=== PATIENT | female | born 1935 | race Caucasian/White ===

== ENCOUNTER 2019-08-31 15:57 | Inpatient (IN) | payer MEDICARE ==
[~2019-08-31 15:57] MED LIST: Iopamidol-370 76% 500 ML 1 ML ONE
[2019-08-31] MEDS ORDERED: Fentanyl 100 MCG/2 ML VIAL ONE (16:15)
[2019-08-31 16:25] LABS: #Eosinphils 0.4 thou/uL (0.0-0.7); #Lymphocytes 3.4 thou/uL (1.20-3.40); #Neutrophils 8.4 thou/uL (1.40-6.50); %Basophils 0.1 % (0.0-1.0); %Eosinophils 3.3 % (0.0-10.0); %Lymphocytes 25.6 % (21.0-51.0); %Monocytes 7.3 % (0.0-10.0); %Neutrophils 63.6 % (42.0-75.0); Hemoglobin 12.5 g/dL (12.0-16.0); Mean Corpuscular HGB CONC 33.1 g/dL (32.0-36.0); Mean Corpuscular Hemoglobin 31.5 pg (27.0-31.0); Mean Corpuscular Volume 95.2 fL (78.0-98.0); Mean Platelet Volume 8.4 fL (7.4-10.4); Platelet Count 168 thou/uL (130-400); RBC Distribution Width 13.1 % (11.5-14.5); Red Blood Cell (RBC) Count 3.98 mill/uL (4.20-5.40); White Blood Cell (WBC) Count 13.2 thou/uL (4.8-10.8)
[2019-08-31 16:42] LABS: ALT (SGPT) 11 U/L (8-55); AST (SGOT) 20 U/L (5-34); Albumin 3.9 g/dL (3.4-4.8); Alkaline Phosphatase 119 U/L (40-110); Anion Gap 16 mmol/L (10-20); BUN (Urea Nitrogen) 44 mg/dL (9.8-20.1); Bilirubin, Total 0.3 mg/dL (0.2-1.2); Calc. Creatinine Clearance 0 mL/min (70-130); Calcium 8.7 mg/dL (7.8-10.44); Carbon Dioxide 20 mmol/L (23-31); Chloride 109 mmol/L (98-107); Estimated GFR-MDRD 21; Globulin 2.5 g/dL (2.4-3.5); Glucose 115 mg/dL (83-110); Lipase 37 U/L (8-78); Potassium 4.6 mmol/L (3.5-5.1); Protein, Total 6.4 g/dL (6.0-8.3); Sodium 140 mmol/L (136-145)
--- NOTE | 2019-08-31 16:56 | RAD ---
XR Chest 1 View HISTORY: Fall COMPARISON: None FINDINGS: The heart size is normal. The aorta is tortuous. There is scoliosis of the spine. There is right sided paramediastinal density. It cannot be said with certainty if this is due to a mass or artifactual. A CT scan would be helpful. No focal areas of consolidation, pneumothorax or pleural eff usions.
--- NOTE | 2019-08-31 17:21 | CT ---
CT BRAIN NONCONTRAST: DATE: 08/31/2019 HISTORY: 84-year-old female status post acute head trauma from fall. Dr. Subramanian reported the subdural hematoma but telephone to Dr. Zelaya at 5:15 PM on 08/31/2019 COMPARISON: none FINDINGS: There is a left temporal parietal frontal acute subdural hematoma which measures approximately 0.8 cm in transverse thickness. There is left to right midline shift of the septum pellucidum a distance of 0.4 cm. Without prior studies, it is uncertain how much of this is pre-existing and how much is du e to mass effect. Ventricles appear normal in size and configuration. No intra-axial hemorrhage. No calvarial fracture identified. Broad left temporal parietal superficial soft tissue scalp hematoma. IMPRESSION: Acute, traumatic left supratentorial subdural hematoma.
--- NOTE | 2019-08-31 17:23 | CT ---
CT CERVICAL SPINE NONCONTRAST: DATE: 08/31/2019 HISTORY: cervical trauma FINDINGS: There are no jumped or perched facets. There is no evidence of acute fracture. The vertebral body hei ghts are maintained. There is no prevertebral soft tissue swelling. There are degenerative disc changes and facet osteoarthrosis. IMPRESSION: 1) Cervical spondylosis. 2) no evidence of acute fracture or acute traumatic subluxation.
--- NOTE | 2019-08-31 17:26 | CT ---
CT maxillofacial noncontrast: HISTORY: 84-year-old female status post acute facial trauma due to fall downstairs. FINDINGS: No acute fracture identified. Orbits are clear. Air-fluid levels in sphenoid sinus. IMPRESSION: No facial bone fracture identified.
--- NOTE | 2019-08-31 17:47 | RAD ---
LEFT HUMERUS RADIOGRAPH ONE VIEW: 08/31/19 PROVIDED CLINICAL HISTORY: Trauma. FINDINGS: There is a displaced humeral neck fracture with conspicuous angulation and fracture fragment overridi ng. The glenohumeral relationship is not assessed on the basis of this study. IMPRESSION: As above. POS: SAUL
--- NOTE | 2019-08-31 17:49 | CT ---
CT THORAX WITH CONTRAST CT ABDOMEN WITH CONTRAST CT PELVIS WITH CONTRAST CT THORACIC SPINE WITH CONTRAST CT LUMBAR SPINE WITH CONTRAST: (Trauma protocol) DATE: 08/31/2019 HISTORY: Trauma to the chest, abdomen, and pelvis TECHNIQUE: IV administration of iodinated contrast media. No oral contrast media. Single phase scans of thorax, abdomen, and pelvis. Sagittal reconstructions of thoracic and lumbar spine. FINDINGS: Thoracic and lumbar spine: There are only 4 lumbar-type vertebrae. T9 compression-burst fracture, approximately 25% loss of height. T11 compression dashed burst fracture approximately 25% loss of height. L2 burst fracture approximately 75% loss of height L3 burst fracture approximately 30% loss of height All other of indeterminate ages. At least some of them, and possibly all of them, could be old. Thorax: Rib fractures, all acute: Left posterior second, mildly displaced. Left posterior third, mildly displaced. Left posterior fourth, nondisplaced. Less posterior fifth, nondisplaced Left posterior sixth, nondisplaced. Left posterior seventh, mildly displaced. Left posterior seventh, nondisplaced Left posterior eighth, nondisplaced Left posterior ninth, mildly displaced Left posterior 10th, mildly displaced. Left lateral ninth, minimally angulated. Left lateral 10th, mildly displaced. Left lateral third, nondisplaced Left lateral fourth, minimally angulated. Left lateral fifth: Minimally displaced and angulated. Left lateral sixth, nondisplaced Left lateral seventh: Nondisplaced. Left lateral eighth: Minimally displaced. Left lateral ninth: Nondisplaced. There are only 11 fully formed paired ribs. Significantly angulated, comminuted, fracture, of left humeral head and neck. Inferior dislocation of glenohumeral joint left. Large hiatal hernia. 1.5 x 0.9 x 1.3 cm noncalcified nodular lesion posterior segment left lower lobe abutting posterior p leural surface. Possible neoplasm. No pulmonary contusion, edema, pleural effusion, or pneumothorax. No thoracic aortic dissection or rupture. No mediastinal hematoma. Abdomen: Severely atrophic right kidney with multiple cysts. Atrophic left kidney with several cysts. Extensiv e bilateral renal scarring. No obvious renal laceration. Normal liver. Grade 3 splenic laceration with surrounding small to moderate sized perisplenic hematoma. Heavy atherosclerosis of abdominal aorta without dissection or aneurysm. No retroperitoneal hematoma. Pelvis: No acute displaced pelvic fracture or dislocation identified, although osteopenia lowers the sensitiv ity. Dr. Subramanian reported all of the findings of the CTs of chest, abdomen, pelvis, C-spine, and facial bones, by telephone to Dr. Zelaya of the emergency Department at 5:44 PM on 08/31/2019 IMPRESSION: 1. Grade 3 splenic laceration with surrounding perisplenic hematoma. 2. Acute fractures of almost all of the left ribs at 2 places each. 3. 1.5 cm lesion in superior segment left lower lobe suspicious for lung cancer. Recommend PET scan. 4. Large hiatal hernia. 5. Multiple compression fractures of lumbar spine and thoracic spine, of indeterminate ages. 6. Severe lumbar spondylosis. 7. Severe atherosclerosis of entire aorta. 8. Extensive scarring and atrophy of bilateral kidneys
--- NOTE | 2019-08-31 17:49 | RAD ---
LEFT ANKLE RADIOGRAPHS TWO VIEWS: 08/31/19 PROVIDED CLINICAL HISTORY: Fall. FINDINGS: There are transversely oriented comminuted and displaced fractures of the distal tibial and fibular d iaphyses. There is intra-articular extension to involve the tibial plafond suspected. IMPRESSION: Comminuted, displaced fractures of the distal tibia and fibula. POS: SAUL
--- NOTE | 2019-08-31 17:56 | RAD ---
LEFT SHOULDER RADIOGRAPHS TWO VIEWS: 08/31/19 PROVIDED CLINICAL HISTORY: Trauma. FINDINGS: Comminuted, displaced fracture of the left humeral neck and humeral head with significant fracture an gulation and overriding. The glenohumeral relationship is not assessed on the basis of this study. IMPRESSION: As above. POS: SAUL
[2019-08-31 18:01] LABS: INR-International Normal Ratio 0.9; Prothrombin Time 12.3 SEC (12.0-14.7)
[2019-08-31 18:02] LABS: PTT 21.9 SEC (22.9-36.1)
[2019-08-31] MEDS ORDERED: Ondansetron PF 4 MG/2 ML Vial ONE (18:07)
[2019-08-31 18:24] LABS: Bacteria/HPF 3+ HPF (None Seen); Bilirubin Negative (Negative); Blood, Urine 3+ (Negative); Clarity Turbid (Clear); Glucose, Urine (Dipstick) Normal (Negative); Leukocyte 500 Leu/uL (Negative); Nitrite Negative (Negative); Protein, Urine (Dipstick) 10 mg/dL (Neg-Trace); RBC/HPF Greater than 50 HPF (0-3); Squamous Epithelial 0-3 HPF (0-3); Urobilinogen Normal mg/dL (Less than 2); WBC/HPF Greater than 50 HPF (0-3)
--- NOTE | 2019-08-31 19:02 | CON ---
DATE OF CONSULTATION: HISTORY OF PRESENT ILLNESS: Ms. Dunbar is a pleasant 84-year-old woman, who was brought to [facility] [facility] [facility] this evening after falling down a flight of stairs at a friend's house. She states she fell roughly about four stairs. Neurosurgery was called for a CT scan of the brain revealing a left-sided full cerebral convexity, subdural hematoma that at greatest thickness measures roughly 6 to 7 mm. All this does appear acute. There is measurable midline shift, which at most appears 2 to 3 mm. She does have asthma as would be expected for a woman of her age, a great deal of cortical atrophy and therefore, has plenty of space, none of her sulci or gyri are obliterated. Villareal-white differentiation is still intact. When I arrived to the Emergency Department, the patient is awake and alert, sitting in bed. She has an obvious frontal scalp laceration of the left eyebrow. This has not yet been stitched, but will likely need some type of external closure. She is nauseous and getting Zofran at the moment. Otherwise, she does not have any obvious external injuries other than a splinted left ankle. She is awake, alert, and oriented x5 to name, place, date of , current month, and current year and gives me some brief history about her moving from [place] to [place] in the early , as well as her 's in 1994. So, it would appear that her mental status is fantastic. She lives at home by herself without much assistance. She does take an 81 mg aspirin daily, but has no other blood thinning medications that she takes, though we do not have a current medication list available to us. PHYSICAL EXAMINATION: Again, the patient is alert and oriented x5. Gait is unassessed as she is in the bed and has a splinted left ankle fracture and is likely nonweightbearing until Orthopedics sees her. Her pupils are equal, round, and reactive to light. Extraocular movements are intact. She does have again a roughly 2.5 cm laceration over the left eyebrow laterally. Cranial nerves 2 through 12 are grossly intact. Sensation is grossly intact to bilateral upper extremities, bilateral lower extremities, chest, and trunk. She is exquisitely tender to palpation and unable to move the left upper extremity. On x-ray, she does have a fully displaced somewhat comminuted left proximal humerus fracture. Otherwise, motor function in the right upper and right lower extremity are excellent. ASSESSMENT: Acute subdural hemorrhage status post fall. PLAN: At this time, Neurosurgery's recommendation would be acute blood pressure control as when she came here she was in the 180 systolic. We would like to see her at least under 160. We will also need to repeat a CT scan later this evening around 9:30 p.m., some order will be placed. Neuro checks q.1 hour. She will definitely need ICU care. I discussed with the patient and friends at bedside that likely this is nonsurgical given her excellent neurologic status and overall thin nature of the subdural hemorrhage. However, did discuss the possibility of need for intervention should this change this evening. She expressed understanding. We will hold all blood thinning medications. Plan was just discussed with Dr. Morales. We will follow up in the morning. Job ID: [id number]
[2019-08-31] MEDS ORDERED: Adacel (T-DAP) 0.5 ML SYRINGE ONE (19:23)
[2019-08-31] MEDS ORDERED: Lidocaine 1% w/Epinephrine 1:100K 20 ML VIAL ONE (19:34)
--- NOTE | 2019-08-31 19:34 | RAD ---
Radiograph left ankle 2 views: DATE: 08/31/2019 Time: 6:48 AM HISTORY: 84-year-old female status post acute traumatic fracture of ankle, initial encounter, first reduction attempt. COMPARISON: 08/31/2019 4:36 PM. FINDINGS: The ankle has been placed into a splint. No interval change in alignment. Ankle mortise is congruent. No dislocation. Severe pes planus. IMPRESSION: 1. No interval change in alignment. 2. New splint. 3. Acute, traumatic, comminuted, mildly displaced fracture of distal tibial metaphysis with lateral a nd posterior angulation of distal fragment (medial and anterior angulation of fracture apex). 4.Acute, traumatic, comminuted, mildly displaced fracture of distal fibular metaphysis with lateral a nd posterior angulation of distal fragment (medial and anterior angulation of fracture apex).
[2019-08-31] MEDS ORDERED: Ondansetron ODT 4 MG TAB PO PRN (19:49)
[2019-08-31] MEDS ORDERED: Dextrose 50% Abboject 50 ML SYRINGE SLOW IVP PRN (19:49)
[2019-08-31] MEDS ORDERED: Dextrose 5% in Water 1,000 ML IV PRN (19:49)
[2019-08-31] MEDS ORDERED: Ondansetron PF 4 MG/2 ML Vial IVP PRN (19:49)
--- NOTE | 2019-08-31 20:07 | RAD ---
Radiograph left foot 3 views: HISTORY: 84-year-old female with acute, traumatic left foot pain FINDINGS: Comminuted, displaced, and angulated fractures of distal metaphyses of tibia and fibula. Pes planus. Severe DJD at naviculocuneiform joint. No displaced fracture of foot identified, but the positioning is suboptimal, and the osteopenia could obscure a mildly displaced or nondisplaced foot f racture. IMPRESSION: 1. No acute fracture of foot identified. 2. Pes planus. 3. Acute fractures of distal tibia and fibula.
[2019-08-31] MEDS ORDERED: traMADol HCl 50 MG TAB PO PRN (20:08)
[2019-08-31] MEDS ORDERED: Fentanyl 100 MCG/2 ML VIAL SLOW IVP PRN (20:10)
[2019-08-31 20:17] LABS: Phosphorus 3.8 mg/dL (2.3-4.7)
[2019-08-31 20:39] LABS: Lactic Acid 2.4 mmol/L (0.5-2.2)
--- NOTE | 2019-08-31 20:56 | RAD ---
Radiograph left leg one view: DATE: 08/31/2019 Time: 4:32 PM Submitted for dictation at 8:51 PM. HISTORY: 84-year-old female status post acute trauma due to fall downstairs. COMPARISON: None FINDINGS: Comminuted, mildly displaced fractures of distal tibial metaphysis and distal fibular metaphysis, wit h lateral angulations of the major distal fragments, plus rotation. No acute fracture of the mid diaphyses and proximal metaphyses of the tibia and fibula are identified, but the sensitivity for the detection of fractures is decreased because this is only a single view. IMPRESSION: Acute, traumatic, comminuted, displaced, angulated fractures of the distal tibial and fibular metaphy ses.
[2019-08-31] MEDS ORDERED: cloNIDine 0.2 MG TAB PO SCH (21:00)
--- NOTE | 2019-08-31 21:14 | PDOC.EVN ---
Event Note - Event Note Event Note: Patient seen and examined. Patient stable and seen in ICU. See Linda Carmichael note for details.
[2019-08-31] MEDS: Sodium Chloride 0.9% 1,000 ML IV SCH (21:36)
[2019-08-31] MEDS: Senokot S 8.6-50 MG TAB PO SCH (22:22)
[2019-08-31] MEDS: traMADol HCl 50 MG TAB PO SCH (22:22)
[2019-08-31] MEDS: Famotidine/PF 20 mg/2ml Vial SLOW IVP SCH (22:22)
[2019-08-31] MEDS: Acetaminophen 500 MG TAB PO SCH (22:23)
[2019-08-31] MEDS: Gabapentin 100 MG CAP PO SCH (22:24)
--- NOTE | 2019-08-31 22:50 | CT ---
CT BRAIN NONCONTRAST: DATE: 08/31/2019 10:35 PM HISTORY: 84-year-old female with acute subdural hematoma. Follow-up. COMPARISON: 08/31/2019 4:53 pm. FINDINGS: The left frontotemporal parietal acute subdural hematoma is now more hyperdense, and slightly larger in volume. Transverse thickness is approximately 9 mm. Left to right midline shift of the septum pellucidum approximately 4 to 6 mm, not significant changed . Ventricles are normal in size and configuration. No new acute intra-axial hemorrhage. No calvarial fracture. Bilateral tympanomastoid cavities are angel ar. Air-fluid level in sphenoid sinus again demonstrated, raising the possibility of occult sphenoid bone fracture. Interval increase in size of left temporoparietal superficial soft tissue hem atoma. IMPRESSION: 1) slight interval increase in size of broad supratentorial left acute, traumatic subdural hematoma, with mild mass effect and midline shift. 2) interval increase in size of acute, broad left lateral scalp hematoma.
--- NOTE | 2019-09-01 00:47 | HP ---
REQUESTING ER PHYSICIAN: Dr. Zelaya. ATTENDING: Dr. Rivera CONSULTS: Orthopedic Surgery, Dr. Thomas. Neurosurgery, Dr. Morales. HISTORY OF PRESENT ILLNESS: This was a level 2 trauma activation. 84-year-old female, who was at her friend's house walking down some steps when she lost her balance and fell approximately 4 steps. The patient does not recall the event. The patient did have a positive loss of consciousness. The patient was evaluated in the emergency room and was found to have multiple traumatic injuries including multiple left-sided rib fractures, head injury, left forehead laceration, distal tibia fibula fracture. The patient currently only complains of her left shoulder and arm pain. The patient's left lower extremity was reduced in the emergency room and a splint was placed. The patient was given a tetanus injection and fentanyl in the emergency room. The patient also received 1 L of normal saline. The patient denied having any dizziness, chest pain, shortness of breath prior to losing her balance while she was going down the stairs. The patient denies any recent fever, chills, cough, or cold. The patient reports only seasonal allergies at this time. PAST MEDICAL HISTORY: Rheumatoid arthritis, chronic kidney disease from chronic Advil use, the patient sees Dr. Kurtz with Nephrology since 2005, macular degeneration, urge incontinence, coronary artery disease, endocrine disease, elevated parathyroid hormone, and hypertension. PAST SURGICAL HISTORY: Bilateral cataracts, bilateral femoral hernia repair, hysterectomy. ALLERGIES: CODEINE AND PENICILLIN. SOCIAL HISTORY: The patient lives at home alone and uses a cane to ambulate, the patient denies any history of smoking, denies alcohol use, denies any illicit drug use. CURRENT MEDICATIONS: 1. Metoprolol 50 mg twice a day. 2. Aspirin 81 mg p.o. daily. 3. Clonidine 0.1 mg oral two times a day. REVIEW OF SYSTEMS: A 10-point review of systems is negative unless otherwise indicated in the above HPI. OBJECTIVE: VITAL SIGNS: Temperature 98.2, pulse 88, blood pressure 159/87, respirations 20, SpO2 of 97% on room air. GENERAL: Well-appearing elderly female, lying in the ER bed, moderate distress due to left upper arm pain. HEENT: Head is normocephalic. Ecchymosis to the left cheek area, 1.5 cm laceration to the left forehead, no active bleeding. Tympanic membranes are clear. Pupils are equal bilateral, extraocular movements intact. Oropharynx is atraumatic. Mucous membranes are moist. NECK: Cervical spine is nontender. Trachea is midline. Normal range of motion. RESPIRATORY: Equal chest rise and fall. Bilateral breath sounds clear with no wheezing, rales, or rhonchi. Chest with no obvious bruising, left clavicle area with swelling. CARDIOVASCULAR: Regular rate, regular rhythm. No murmurs, no pedal edema. ABDOMEN: Soft, nontender, nondistended. No peritoneal signs. Active bowel sounds. PELVIS: Stable, nontender. : The patient has a Fuentes catheter in place with mildly blood-tinged output. BACK: Nontender. EXTREMITIES: Deformity and pain, left upper extremity, 2+ radial pulse. Left lower leg deformity, splint in place, cap refill less than 2, foot is warm. Right upper and lower extremity atraumatic with good pulses distally. NEUROLOGIC: The patient is awake, alert, and oriented. GCS is 15. No focal motor deficits. No focal sensory deficit at all extremities. Cranial nerves intact. LABORATORY DATA: WBC 13.2, RBC 3.98, hemoglobin 12.5, hematocrit 39.9, platelets 168. PT 12.3, INR 0.9, APTT 21.9. Sodium 140; potassium 4.6; chloride 109; BUN 44; creatinine 2.21; estimated GFR 21, which is baseline for the patient. Glucose 115, lactate 2.4, calcium 8.7, phosphorus 3.8, magnesium 2.0, alkaline phos 119. Troponin I less than 0.010. BNP 65.9. Urinalysis positive for blood 3+, negative nitrite, large leukocyte esterase, large rbc's, large wbc's, 3+ bacteria. DIAGNOSTICS: 12-lead EKG; sinus rhythm without any ST-segment abnormalities or T-wave abnormalities. Left shoulder x-ray, impression, comminuted and displaced fracture of the left humeral neck and humeral head with significant fracture angulation and overriding. Left ankle x-ray, impression, comminuted and displaced fractures of the distal tibia and fibula. Chest x-ray, impression, no focal areas of consolidation, no pneumothorax or pleural effusions. Left foot x-ray, no acute fracture of the foot identified. Left tibia and fibula x-ray, impression, left distal tibia-fibula fracture. Cervical spine CT, impression, cervical spondylosis, no evidence of acute fracture or acute traumatic subluxation. Chest, abdomen, and pelvis CT, impression, left rib fractures 2 through 10, grade 3 splenic laceration with surrounding perisplenic hematoma. 1.5 cm lesion in the superior segment of the left lower lobe suspicious for lung cancer. Recommend PET scan. Large hiatal hernia. Multiple compression fractures of lumbar spine and thoracic spine of indeterminate age. Severe lumbar spondylosis. Severe atherosclerosis of the entire aorta. Extensive scarring and atrophy of bilateral kidneys. Facial bone CT, no acute bone fracture identified. Left humerus x-ray, impression, displaced humeral neck fracture. Brain CT; impression, acute traumatic left supratentorial subdural hematoma. There is a left to right midline shift of septal pellucidum, the distance of 0.4 cm. ASSESSMENT: 1. Status post fall from 4 steps with loss of consciousness. 2. Left supratentorial subdural hematoma. 3. Left distal tibial-fibular fracture. 4. Left comminuted and displaced humeral neck fracture. 5. Grade 3 spleen injury. 6. Left forehead laceration approximately 1.5 cm, repaired in the ER. 7. Old thoracic and lumbar compression fractures. 8. Multiple left-sided rib fractures 2 through 10. 9. Urinary tract infection on admission. 10. Extensive scarring and atrophy of bilateral kidneys, large hiatal hernia, atherosclerosis of the aorta. 11. Incidental finding of a 1.5 cm left lower lobe lesion suspicious for lung cancer. 12. History of rheumatoid arthritis, chronic kidney disease stage 4, hypertension, macular degeneration, coronary artery disease, elevated parathyroid hormone. PLAN: 1. Admit the patient to the critical care unit. 2. Every 1-hour neuro checks and head of bed 30 degrees at all times. 3. Orthopedic Surgery plans to take the patient to the OR for repair of her left lower leg fracture in the morning. 4. Conservative treatment for left humeral neck fracture with sling at this time. 5. We will monitor the patient's hemoglobin and hematocrit q.6 hours with serial abdominal exams. 6. We will place the patient on a rib fracture protocol and a bowel regimen. We will encourage aggressive pulmonary toilet with incentive spirometer. We will treat the patient's urinary tract infection with Macrobid for 5 days and obtain a urine culture. 7. We will avoid any nephrotoxic medications such as NSAIDs. 8. We will place the patient on maintenance IV fluids with normal saline at 100 mL/hour and the patient will be n.p.o. after midnight except for sips of water with medications. The patient will have a repeat head CT per Neurosurgery recommendations. We will place a PT and OT consult to evaluate and treat postop. The patient will be placed on mechanical DVT prophylaxis at this time. The patient will not be placed on chemical DVT prophylaxis as there is a contraindication due to her subdural hematoma and spleen injury. We will continue to monitor urinary output and keep systolic blood pressure less than 160 per Neurosurgery recommendations. The plan was discussed with Dr. Rivera, who agrees. The plan was discussed with the patient and family, who agrees. Job ID: [id number] MTDD
[2019-09-01] MEDS: Acetaminophen 500 MG TAB PO SCH ×4 (03:06→20:04)
[2019-09-01] MEDS: traMADol HCl 50 MG TAB PO SCH ×5 (03:06→23:58)
[2019-09-01 04:40] LABS: Hemoglobin 9.3 g/dL (12.0-16.0)
[2019-09-01 04:51] LABS: Anion Gap 15 mmol/L (10-20); BUN (Urea Nitrogen) 42 mg/dL (9.8-20.1); Calc. Creatinine Clearance 16 mL/min (70-130); Calcium 7.9 mg/dL (7.8-10.44); Carbon Dioxide 16 mmol/L (23-31); Chloride 110 mmol/L (98-107); Estimated GFR-MDRD 21; Glucose 152 mg/dL (83-110); Magnesium 1.9 mg/dL (1.6-2.6); Potassium 4.8 mmol/L (3.5-5.1); Sodium 136 mmol/L (136-145)
[2019-09-01] MEDS: Sodium Chloride 0.9% 1,000 ML IV SCH ×2 (06:31→17:48)
[2019-09-01 07:22] LABS: Phosphorus 5.5 mg/dL (2.3-4.7)
--- NOTE | 2019-09-01 07:36 | RAD ---
EXAM: XR Forearm Lt 2 View STANDARD PROVIDED CLINICAL HISTORY: Pain FINDINGS: There is no evidence for fracture or other acute osseous abnormality. Alignment appears anatomic. Deg enerative changes are seen at the wrist and elbow. IMPRESSION: No evidence for an acute osseous abnormality. If there is persistent clinical concern, conservative m anagement and follow-up imaging advised.
--- NOTE | 2019-09-01 07:37 | RAD ---
EXAM: XR Elbow Lt 2 View PROVIDED CLINICAL HISTORY: Pain FINDINGS: There is no evidence for fracture or other acute osseous abnormality. Alignment appears anatomic. Deg enerative changes are seen. IMPRESSION: No evidence for an acute osseous abnormality. If there is persistent clinical concern, conservative m anagement and follow-up imaging advised.
--- NOTE | 2019-09-01 07:48 | RAD ---
EXAM: Portable chest PROVIDED CLINICAL HISTORY: Rib fractures COMPARISON: 08/31/2019 FINDINGS: Significant interval change with respect to the prior examination is not apparent. IMPRESSION: As above.
[2019-09-01 08:12] LABS: Band 17 % (5-11); Hemoglobin 9.1 g/dL (12.0-16.0); Lymphocytes 17 % (21-51); MDiff Complete? YES; Mean Corpuscular HGB CONC 33.5 g/dL (32.0-36.0); Mean Corpuscular Hemoglobin 32.1 pg (27.0-31.0); Mean Corpuscular Volume 95.8 fL (78.0-98.0); Monocytes 4 % (0-10); Neutrophil 61 % (42-75); Platelet Count 165 thou/uL (130-400); Red Blood Cell (RBC) Count 2.84 mill/uL (4.20-5.40); White Blood Cell (WBC) Count 8.2 thou/uL (4.8-10.8)
[2019-09-01 08:14] LABS: Lactic Acid 1.1 mmol/L (0.5-2.2)
[2019-09-01 08:21] LABS: Actual Bicarbonate (HCO3a) 18.4 mEq/L (22-28); Base Excess (BEa) -6.8 mEq/L (-2.0 to +3.0); CO2 Tension 35.3 mmHg (35.0-45.0); Calcium, Ionized 1.11 mmol/L (1.12-1.30); Carboxyhemoglobin (COHb) 1.4 gm% (0.0-3.0); Hemoglobin (Hb) 8.9 g/dL (12.0-16.0); O2 Tension (PaO2) 60.9 mmHg (> 60.0); Potassium - ABG Lab 4.64 mmol/L (3.70-5.30); pH, Arterial 7.34 (7.35-7.45)
[2019-09-01 08:22] LABS: ALV-art Gradient 44.705 (0-20); Puncture Site RRA
[2019-09-01] MEDS ORDERED: Calcium Chloride 1 GM/10 ML Abboject SYRINGE IVP SCH (08:30)
[2019-09-01] MEDS ORDERED: Sodium Chloride 0.9% 500 ML IV SCH (08:45)
[2019-09-01] MEDS: Morphine 2 MG/ML SYRINGE SLOW IVP PRN ×2 (08:53→20:40)
[2019-09-01] MEDS: Ferrous Sulfate 325 MG TAB PO SCH ×2 (08:55→17:59)
[2019-09-01] MEDS ORDERED: CALCIUM CHLORIDE IVP SCH (09:00)
[2019-09-01] MEDS ORDERED: SODIUM CHLORIDE IVP SCH (09:00)
[2019-09-01] MEDS ORDERED: ADMIXTURE FEE IVP SCH (09:00)
[2019-09-01] MEDS: Polyethylene Glycol 3350 17 GM Packet PO SCH (09:12)
[2019-09-01] MEDS: Nitrofurantoin Monohyd/M-Cryst 100 MG CAP PO SCH ×2 (09:12→20:04)
[2019-09-01] MEDS: Gabapentin 100 MG CAP PO SCH ×3 (09:12→20:04)
[2019-09-01] MEDS: Ascorbic Acid 500 mg Chewable Tablet PO SCH (09:12)
[2019-09-01] MEDS: Senokot S 8.6-50 MG TAB PO SCH ×2 (09:12→20:04)
--- NOTE | 2019-09-01 09:57 | CT ---
Head CT without contrast 09/01/2019: COMPARISON: 08/31/2019 HISTORY: Evaluate left-sided subdural hematoma TECHNIQUE: Axial CT imaging at 5 mm intervals from vertex through skull base without contrast FINDINGS: As seen on the prior examination there is an acute hemispheric subdural hematoma on the lef t. Left subdural hematoma measures up to 6 mm transverse dimension in the left frontal region anteriorly, stable. The small component lateral to the superior aspect of the left temporal lobe on t he prior examination has improved slightly. The volume of subdural blood along the frontal and parietal regions on the left near the vertex is stable. No new hemorrhage is seen. The degree of midl ine shift from left to right on this examination measures approximately 4 mm at the level of the septum pellucidum, similar to the prior examination. Small volume subarachnoid blood is noted in the right temporal region posteriorly/laterally. There is partial opacification of the sphenoid sinuses bilaterally. No displaced calvarial fracture. IMPRESSION: Stable hemispheric left subdural hematoma with mild left to right midline shift as detail ed above. Small volume extra-axial blood in the right temporal region is noted, not significantly changed when compared to the 08/31/2019 exam performed 10:35 PM.
--- NOTE | 2019-09-01 10:34 | CON ---
DATE OF CONSULTATION: 09/01/2019 HISTORY OF PRESENT ILLNESS: Ms. Dunbar is an 84-year-old female, who presents for evaluation after a fall from three stairs. The patient has multiple injuries to include a subdural hematoma, rib fractures, splenic lac, a left distal tibia and left proximal humerus fracture. The patient is resting comfortably in the ICU, had no events overnight, neurocognitively intact, has been cleared by Neurosurgery. She is currently being evaluated by Traumatology for clearance for the OR. Family at bedside. PHYSICAL EXAMINATION: VITAL SIGNS: Heart rate 104, 95% on room air, 102/58 blood pressure. GENERAL: Alert and oriented female, in no distress. EXTREMITIES: Left lower extremity is neurovascularly intact. She has bruising. No open wounds. She has pain with external rotation of her left shoulder. Left lower extremity splint clean, dry, intact. Neurovascularly intact. Brisk cap refill. IMPRESSION: Distal tibial plafond A1 fracture pattern with a left proximal humerus fracture. ASSESSMENT AND PLAN: The patient's left proximal humerus will be closed reduced in the OR. Her left ankle is the complicated situation. I am concerned about tenuousness of the skin. She is not a good candidate for an ex-fix. I feel that plating would be the optimal outcome, but her skin will likely not tolerate the plate fixation either for anterolateral or posterior. I am concerned about potential soft tissue compromise as well as the patient's ability to heal the fracture. I discussed with the family performing a transcalcaneal talar tibial pin with a fibular flexible nail as a stabilizing mechanism being placed in a splint followed by cast, hold it in place with removal of the pin in a delayed fashion once soft callus is formed. I discussed that this would help to stabilize the bone in an appropriate position while allow to heal. The pins will need to be removed. We also will try to attempt a closed reduction. I am doing this because the patient's soft tissue compromise as well as her bone quality. I am trying to minimize soft tissue injury as well as risk the patient. They understand that she still could end up with a valgus deformity of her left ankle. They understand the risks of the surgery that include pain, scar, bleeding, infection, damage to vital structures, loss of life or limb, malunion, nonunion, blood clots. They understand that her proximal humerus will be treated closed at first. If she fails conservative management, I can convert her to reverse placement as needed. She will be nonweightbearing to her left side for 12 weeks. The patient and family understand she is going to need long-term care. We will plan to perform this. The patient will be taken to the operating suite once cleared by Trauma. Job ID: [id number] MTDD
[2019-09-01] MEDS ORDERED: PROPOFOL 200 MG/20 ML VIAL ONE (11:06)
[2019-09-01] MEDS ORDERED: Ondansetron PF 4 MG/2 ML Vial ONE (11:06)
[2019-09-01] MEDS ORDERED: Dexamethasone 20 MG/5 ML VIAL ONE (11:06)
[2019-09-01] MEDS ORDERED: ePHEDrine/0.9% NaCl/PF SYRINGE 50 mg/10 ml ONE (11:06)
[2019-09-01] MEDS ORDERED: PHENYLEPHRINE-NS 100 MCG/ML 10 ML SYRINGE ONE (11:06)
[2019-09-01] MEDS ORDERED: Lidocaine 1% PF 5 ML VIAL ONE (11:06)
[2019-09-01] MEDS ORDERED: Phenylephrine HCL 10 MG/ML VIAL ONE (12:43)
[2019-09-01] MEDS ORDERED: Clindamycin/D5W 900 mg/50 ml Premix Bag ONE (13:23)
[2019-09-01] MEDS ORDERED: Hydrocortisone Sod Succ/PF 100 mg/2 ml Vial IVP SCH ×2 (13:45→20:00)
[2019-09-01] MEDS ORDERED: Promethazine HCl 25 MG/ML VIAL SLOW IVP PRN (15:18)
[2019-09-01] MEDS ORDERED: Ondansetron HCl/PF 4 MG/2 ML Vial IVP PRN (15:18)
[2019-09-01] MEDS ORDERED: Promethazine HCl 25 MG/ML VIAL IM PRN (15:18)
--- NOTE | 2019-09-01 16:14 | PRG ---
DATE OF SERVICE: 09/01/2019 SUBJECTIVE: The patient was seen this morning, sitting up in bed with no signs of acute distress. She reported her pain was manageable as long as she did not move, but if she took a deep breath, coughs, or moved at all, she had significant left upper extremity and chest wall pain, rating at 7/10 to 8/10. The patient is pending OR today for her left humerus and left distal tib-fib fractures. At the time of my evaluation, the patient's blood pressure has slowly drifted with systolic in the 100 and urinary output had dropped off below 30 mL an hour. Repeat CBC was completed as well as cortisol, lactic acid, ABG, for ionized calcium. It was determined that the patient needed additional fluid and she received 500 mL bolus of normal saline once. We continued her maintenance IV fluid. Repeat head CT completed last night had demonstrated an increase in the size of the head bleed. A repeat head CT was also completed today, that demonstrated that the bleed was stable. Subsequently, the patient was taken to the OR with Dr. Thomas for fixation of the left humerus and left ankle. The patient was requiring a little nasal cannula oxygen to maintain oxygen saturation greater than 92%. The patient is a smoker. OBJECTIVE: VITAL SIGNS: Temperature 98.6, pulse 100, oxygen saturation 94% on 2 L nasal cannula, and blood pressure 113/59. GENERAL: Frail elderly female, sitting up in bed, with some minimal respiratory distress. CARDIAC: Regular rate and rhythm. GI: Abdomen is soft, nontender, and nondistended. EXTREMITIES: 2+ pulses in all extremities. Left upper extremity is severely tender and splinted. Left lower extremity with splint that is clean and dry and in place. NEUROLOGIC: GCS is 15. LABORATORY FINDINGS: White count 8.2, hemoglobin 9.1, hematocrit 27.2, and platelets 165. Sodium 136, potassium 4.8, chloride 110, bicarb 16, BUN 42, creatinine 2.26, and glucose 152. Lactic acid 1.1. Phosphorus 5.5. Magnesium 1.9. Cortisol 12.3. ABG; pH is 7.34, bicarb 18.4, pCO2 of 35, pO2 of 60.9, O2 saturation 90.6, and base excess -6.8. Ionized calcium 1.11. DIAGNOSTIC RESULTS: X-ray of the elbow completed this morning demonstrates no evidence of acute osseous abnormalities. If there is persistent clinical concern, conservative management with followup imaging advised. X-ray of the left forearm demonstrates no evidence for acute osseous abnormalities. CT scan of the brain completed this morning demonstrates stable hemispheric left subdural hematoma with mild left to right midline shift as detailed above, small volume extra-axial blood in the right temporal region is noted, not significantly changed when compared to 08/31/2019 exam performed at 10:35 p.m. Chest x-ray demonstrates significant interval change with respect to the prior exam, it is not apparent. ASSESSMENT: 1. Status post mechanical fall down 4 steps. 2. Left subdural hematoma with midline shift. 3. Grade 3 splenic laceration with associated hematoma. 4. Left-sided ribs 2 through 10 fracture. 5. Left distal tib-fib fracture. 6. Left humerus fracture. 7. Urinary tract infection. 8. Left forehead laceration. 9. Acute adrenal insufficiency. 10. Acute hypocalcemia. PLAN: Continue n.p.o. with normal saline at 100 an hour. We will maximize her pain control. Continue scheduled Tylenol 1 g q.6 h., Flexeril p.r.n. We will change from fentanyl to morphine for breakthrough pain. We will add scheduled nebs q.6 h. We will also add Lidoderm patches. We will continue to closely monitor neurologic status. The patient going to the OR with Dr. Thomas for multiple bony injuries. Postoperatively, we will repeat labs and transfuse as indicated. There were 2 units of packed red blood cells already. Tomorrow, the patient will start to work with Physical and Occupational Therapy and will get out of bed into the neuro chair. This patient was discussed with Dr. Rivera and Dr. Verduzco before this dictation. Job ID: [id number]
--- NOTE | 2019-09-01 16:43 | RAD ---
Radiograph left hip 2 views: HISTORY: 84-year-old female with acute traumatic left hip pain due to fall FINDINGS: No dislocation or displaced fracture. No osteophytes. Femoral head contour maintained. Mild joint spa ce narrowing. Although no fracture is identified, the osteopenia could obscure a nondisplaced acute fracture. Therefore, if symptoms do not improve in the next 5-10 days, follow-up noncontrast MRI of t he pelvis and left hip is recommended. IMPRESSION: No fracture identified
[2019-09-01 16:46] LABS: #Basophils 0.1 thou/uL (0.0-0.2); #Lymphocytes 0.9 thou/uL (1.20-3.40); #Monocytes 0.5 thou/uL (0.11-0.59); #Neutrophils 10.7 thou/uL (1.40-6.50); %Eosinophils 0.1 % (0.0-10.0); %Lymphocytes 7.2 % (21.0-51.0); %Monocytes 4.2 % (0.0-10.0); %Neutrophils 87.5 % (42.0-75.0); Mean Corpuscular HGB CONC 32.2 g/dL (32.0-36.0); Mean Corpuscular Hemoglobin 32.5 pg (27.0-31.0); Mean Platelet Volume 7.8 fL (7.4-10.4); Platelet Count 156 thou/uL (130-400); RBC Distribution Width 13.3 % (11.5-14.5); Red Blood Cell (RBC) Count 2.76 mill/uL (4.20-5.40); White Blood Cell (WBC) Count 12.2 thou/uL (4.8-10.8)
[2019-09-01 16:53] LABS: INR-International Normal Ratio 1.1; Prothrombin Time 13.8 SEC (12.0-14.7)
[2019-09-01 17:05] LABS: Anion Gap 16 mmol/L (10-20); BUN (Urea Nitrogen) 45 mg/dL (9.8-20.1); Calc. Creatinine Clearance 15 mL/min (70-130); Calcium 8.9 mg/dL (7.8-10.44); Carbon Dioxide 14 mmol/L (23-31); Chloride 114 mmol/L (98-107); Estimated GFR-MDRD 18; Glucose 176 mg/dL (83-110); Magnesium 1.9 mg/dL (1.6-2.6); Phosphorus 5.8 mg/dL (2.3-4.7); Potassium 4.8 mmol/L (3.5-5.1); Sodium 139 mmol/L (136-145)
--- NOTE | 2019-09-01 18:12 | RAD ---
Radiograph left ankle 2 views: DATE: 09/01/2019 HISTORY: 84-year-old female with acute, traumatic ankle fractures. COMPARISON: 08/31/2019 6:48 PM FINDINGS: Fluoroscopic spot images obtained with C-arm in the OR. Splint has been removed. The distal tibial an d distal fibular metaphyseal fractures have been reduced, now with nearly anatomical alignment. A long medial metallic sideplate has been placed, anchored to bone with multiple screws, from mid-dista l tibial diaphysis to mid medial malleolus. Long pin/wire has been inserted from mid fibular diaphysis, protruding inferior to the lateral malleolus. IMPRESSION: 1. Status post open reduction internal fixation of distal tibial metaphyseal fracture. 2. Status post pin fixation of distal fibular metadiaphyseal fracture.
[2019-09-01] MEDS ORDERED: Metoprolol Tartrate 50 MG TAB PO SCH ×2 (20:00→21:00)
[2019-09-01] MEDS: Famotidine/PF 20 mg/2ml Vial SLOW IVP SCH (20:04)
[2019-09-01 21:08] LABS: Hemoglobin 8.9 g/dL (12.0-16.0)
[2019-09-01] MEDS: Clindamycin/D5W 900 MG in Premix Bag 1 BAG IVPB SCH (21:08)
[2019-09-01] MEDS: Cyclobenzaprine 10 MG TAB PO PRN (22:08)
[2019-09-01] MEDS ORDERED: Sodium Chloride 0.9% 250 ML IV SCH (23:30)
[2019-09-01] MEDS ORDERED: Gabapentin 300 MG CAP PO SCH (23:30)
[2019-09-01] MEDS ORDERED: Gabapentin 100 MG CAP PO SCH (23:30)
[2019-09-01] MEDS: Lidocaine 5% Patch TD SCH (23:31)
[2019-09-02] MEDS: traMADol HCl 50 MG TAB PO SCH ×3 (02:00→21:03)
[2019-09-02] MEDS: Sodium Chloride 0.9% 1,000 ML IV SCH ×2 (02:43→22:00)
[2019-09-02 03:02] LABS: #Monocytes 1.6 thou/uL (0.11-0.59); #Neutrophils 11.8 thou/uL (1.40-6.50); %Basophils 0.2 % (0.0-1.0); %Eosinophils 0.2 % (0.0-10.0); %Lymphocytes 6.6 % (21.0-51.0); %Monocytes 11.2 % (0.0-10.0); %Neutrophils 81.9 % (42.0-75.0); Mean Corpuscular HGB CONC 32.1 g/dL (32.0-36.0); Mean Corpuscular Hemoglobin 31.8 pg (27.0-31.0); Mean Corpuscular Volume 99.3 fL (78.0-98.0); Mean Platelet Volume 7.9 fL (7.4-10.4); Platelet Count 172 thou/uL (130-400); RBC Distribution Width 13.3 % (11.5-14.5); Red Blood Cell (RBC) Count 2.52 mill/uL (4.20-5.40); White Blood Cell (WBC) Count 14.4 thou/uL (4.8-10.8)
[2019-09-02] MEDS: Acetaminophen 500 MG TAB PO SCH ×4 (03:15→21:03)
[2019-09-02 03:27] LABS: Anion Gap 16 mmol/L (10-20); BUN (Urea Nitrogen) 44 mg/dL (9.8-20.1); Calc. Creatinine Clearance 15 mL/min (70-130); Calcium 8.1 mg/dL (7.8-10.44); Carbon Dioxide 14 mmol/L (23-31); Chloride 114 mmol/L (98-107); Estimated GFR-MDRD 18; Glucose 177 mg/dL (83-110); Magnesium 1.9 mg/dL (1.6-2.6); Phosphorus 5.9 mg/dL (2.3-4.7); Potassium 5.4 mmol/L (3.5-5.1); Sodium 139 mmol/L (136-145)
--- NOTE | 2019-09-02 03:32 | PRG ---
DATE OF SERVICE: 09/01/2019 SUBJECTIVE: The patient was seen during evening rounds on the critical care unit. The patient in moderate respiratory distress, mildly tachypneic, hypertensive and tachycardic. The patient arouses easily to voice and reports left-sided rib pain. Urinary output is adequate, the patient is afebrile. OBJECTIVE: GENERAL: Elderly female, moderate distress due to pain. RESPIRATORY: Mild flail segment in left upper chest, bilateral breath sounds clear, tachypneic. CARDIAC: Regular rate, tachycardic. ABDOMEN: Soft, nontender, nondistended. EXTREMITIES: Moves all extremities. Distal pulses in place, intact. Left upper extremity with Clarke wrap and sling in place. Left lower extremity with splint clean, dry, and in place. NEUROLOGIC: GCS 15. DIAGNOSTICS: 12-lead EKG, impression; sinus tach with PACs, no ST or T-wave abnormalities. Troponin indeterminate. ASSESSMENT: 1. Status post mechanical fall down four steps. 2. Left subdural hematoma with midline shift. 3. Grade 3 splenic laceration with associated hematoma. 4. Left-sided rib fractures, 2 through 10. 5. Left distal tib-fib fracture, status post repair. 6. Left humerus fracture, status post repair. 7. Urinary tract infection on admission. 8. Forehead laceration, repaired. 9. Acute adrenal insufficiency, resolved. 10. Acute traumatic pain. PLAN: Continue n.p.o. status with maintenance IV fluids at normal saline 100 mL an hour. We will renal dose patient's tramadol. We will trend troponin. We will restart patient's home metoprolol with hold parameters. We will stop hydrocortisone as the patient has been hypertensive. We will continue to monitor urinary output closely. We will place patient on BiPAP as needed. We will repeat hemoglobin and hematocrit in the morning. Job ID: [id number] [facility]
[2019-09-02] MEDS: Clindamycin/D5W 900 MG in Premix Bag 1 BAG IVPB SCH (05:05)
--- NOTE | 2019-09-02 08:31 | RAD ---
EXAM: XR Chest 1 View Portable PROVIDED CLINICAL HISTORY: Rib fractures COMPARISON: 09/01/2019 FINDINGS: Known hiatal hernia is conspicuously gas-filled on the current study. Cardiac and mediastinal silhoue tte is not definitely changed in appearance. Bibasilar pleural-parenchymal opacities are noted. There is no evidence for pneumothorax. IMPRESSION: As above.
[2019-09-02] MEDS ORDERED: Gabapentin 300 MG CAP PO SCH (09:00)
[2019-09-02] MEDS ORDERED: Lidocaine 5% Patch TD SCH (09:00)
--- NOTE | 2019-09-02 09:01 | PRG ---
DATE OF SERVICE: 09/02/2019 Ms. Dunbar this morning is on BiPAP. She is now postoperative day 1 from left ankle internal fixation with Dr. Thomas and appears to be relatively comfortable there. Her biggest complaint is pain with breathing and she does have considerable number of rib fractures on the left side in multiple locations, but are likely contributing to this. She was placed on BiPAP overnight for moderate respiratory distress with the guidance of the Trauma team. Her mental status did wane some overnight, which appears to be medication related. Her creatinine this morning is 2.48, and is known to have chronic kidney disease. We will defer to primary team for management. Additionally, her potassium this morning was at 5.4. We will also defer for management there. From Neurosurgery standpoint, her subdural continues to be nonsurgical. We will continue to follow along. We can relax neuro checks to q.4 hours. Job ID: [id number]
[2019-09-02] MEDS: Cyclobenzaprine 10 MG TAB PO PRN (09:04)
[2019-09-02 09:19] LABS: Actual Bicarbonate (HCO3a) 14.7 mEq/L (22-28); Base Excess (BEa) -10.9 mEq/L (-2.0 to +3.0); CO2 Tension 31.5 mmHg (35.0-45.0); Carboxyhemoglobin (COHb) 1.7 gm% (0.0-3.0); Hemoglobin (Hb) 7.5 g/dL (12.0-16.0); O2 Tension (PaO2) 78.5 mmHg (> 60.0); Potassium - ABG Lab 4.64 mmol/L (3.70-5.30); pH, Arterial 7.29 (7.35-7.45)
[2019-09-02 09:20] LABS: ALV-art Gradient 81.765 (0-20); Puncture Site RRA
--- NOTE | 2019-09-02 09:41 | PRG ---
DATE OF SERVICE: 09/02/2019 Ms. Dunbar is now hospital day 2, status post fall with an acute subdural hematoma over the left cerebral convexity. I have reviewed all her images including the serial head CTs, which show a subdural hematoma with a mild degree of effacement of the cortical surface and a very mild to modest degree of midline shift. Neurologically, she is at baseline. I foresee no need for neurosurgical intervention. Any other surgical procedures that she may need as it pertains to her other injuries can be performed at any time. Job ID: [id number]
[2019-09-02] MEDS: Ascorbic Acid 500 mg Chewable Tablet PO SCH (09:59)
[2019-09-02] MEDS: Ferrous Sulfate 325 MG TAB PO SCH ×2 (10:00→16:50)
[2019-09-02] MEDS: Senokot S 8.6-50 MG TAB PO SCH ×2 (10:00→21:06)
[2019-09-02] MEDS ORDERED: Sodium Chloride 0.9% 500 ML IV SCH (10:00)
[2019-09-02] MEDS ORDERED: Sodium Bicarb 50 MEQ/50 ML VIAL IVP SCH (10:00)
[2019-09-02] MEDS ORDERED: Calcium Chloride 1 GM/10 ML Abboject SYRINGE IVP SCH (10:00)
[2019-09-02] MEDS: Metoprolol Tartrate 50 MG TAB PO SCH ×2 (10:16→21:07)
[2019-09-02] MEDS: Polyethylene Glycol 3350 17 GM Packet PO SCH (10:16)
[2019-09-02] MEDS: Gabapentin 100 MG CAP PO SCH (10:32)
--- NOTE | 2019-09-02 11:53 | CON ---
DATE OF CONSULTATION: HISTORY OF PRESENT ILLNESS: Ms. Dunbar is status post fall from 3 steps, sustaining a left proximal humerus fracture and a left pilon fracture extra-articular on the left with fibular fracture. She underwent open reduction and internal fixation of the left ankle. The patient has coaptation splint over left arm. The patient is resting comfortably in bed. Drowsy, sitting up in a chair. PHYSICAL EXAMINATION: VITAL SIGNS: Temperature, she is afebrile; blood pressure 108/65; heart rate 77; oxygen saturation 97%; and respiratory rate of 27. GENERAL: Alert and oriented female, resting comfortably in bed. Drowsy. No acute distress. EXTREMITIES: Left upper extremity, coaptation splint in place. Swelling of the left hand. Wiggling and moving her fingers. Cap refill intact. Left lower extremity; splint clean, dry, and intact. Wiggling her toes. Sensation grossly intact. Brisk cap refill. LABORATORY DATA: H and H of 8 and 25. IMPRESSION: Status post fall with multiple orthopedic injuries to include left pilon A1 fracture, status post open reduction and internal fixation with fibular fracture, status post intramedullary nailing, proximal humerus fracture, head split and coaptation splint. ASSESSMENT AND PLAN: The patient will remain in her splint. She will be nonweightbearing to bilateral upper extremities likely for 12 weeks, will need shelter placement. Will be followed in the ICU for resolution of her subdural as well as all of her other traumatic injuries. We will follow with Trauma. Job ID: [id number]
[2019-09-02] MEDS: Nitrofurantoin Monohyd/M-Cryst 100 MG CAP PO SCH (11:57)
[2019-09-02] MEDS: Lidocaine Patch Removal 1 EACH TOP SCH (13:02)
[2019-09-02] MEDS: cefTRIAXone\\ROCEPHIN 1 GM in Sodium Chloride 0.9% 100 ML IVPB SCH (14:09)
--- NOTE | 2019-09-02 14:09 | RAD ---
EXAM: XR Abdomen 1 View/KUB PROVIDED CLINICAL HISTORY: Dobbhoff placement COMPARISON: 09/02/2019 chest radiograph FINDINGS: Interval placement of enteric catheter, the tip of which overlies the known hiatal hernia. The abdomi nal bowel gas pattern is nonspecific. Vascular calcifications are seen. IMPRESSION: Enteric catheter placement as described.
[2019-09-02] MEDS: Sodium Bicarbonate 150 MEQ in Dextrose 5% in Water 1,000 ML IV SCH (14:52)
--- NOTE | 2019-09-02 16:05 | RAD ---
Radiograph abdomen one view: 09/02/2019 2:35 PM HISTORY: Dobbhoff tube manipulation in 84-year-old female. COMPARISON: 09/02/2019 1:38 PM FINDINGS: Current images centered more superiorly, demonstrating that the Dobbhoff feeding tube is doubled back upon itself in the esophagus and in the moderately large hiatal hernia. It does not extend inferior to the diaphragm. IMPRESSION: Dobbhoff feeding tube coiled and doubled back on itself in the esophagus and in the hiatal hernia.
--- NOTE | 2019-09-02 16:30 | PRG ---
DATE OF SERVICE: 09/02/2019 SUBJECTIVE: The patient was seen this morning, lying in bed with some mild respiratory distress. Overnight, she became tachypneic and tachycardic and was subsequently placed on BiPAP overnight. This morning, she is saturating around 98% on 3 L nasal cannula. She is a little difficult to arouse and reports left-sided chest wall pain and stated that she was tired. She has remained hemodynamically stable and has dropped off on her urinary output this morning. OBJECTIVE: VITAL SIGNS: Temperature 98.0, pulse 98, respirations 30, oxygen saturation 96% on 3 L nasal cannula, and blood pressure 138/90. GENERAL: Elderly female, sitting up in bed with some moderate pulmonary distress and cough. PULMONARY: Equal chest rise and fall. Diminished breath sounds at the bilateral bases with an upper respiratory type crackle. ABDOMEN: Soft, nontender, and nondistended. EXTREMITIES: 2+ pulses in all extremities. Gross motor and sensation are intact. Left upper and lower extremity with splint that are clean, dry, and intact. LABORATORY FINDINGS: White count 14.4, hemoglobin 8.0, hematocrit 25.0, and platelets 172. Sodium 139, potassium 5.4, chloride 111, bicarb 14, BUN 44, creatinine 2.48, glucose 144, phosphorus 5.9, magnesium 1.9. The ABG results; pH is 7.29, pCO2 is 31.5, PO2 is 78.5, O2 saturation is 95, base excess is -10.9, bicarb is 14.7, and ionized calcium is 1.10. DIAGNOSTIC FINDINGS: Chest x-ray completed this morning demonstrates known hiatal hernia, it is conspicuously gas-filled on the current study. Cardiac and mediastinal silhouette are not definitely changed in appearance. Bibasilar pleural-parenchymal opacities are noted. There is no evidence of pneumothorax. ASSESSMENT: 1. Status post fall from four steps, on aspirin. 2. Left subdural hematoma, stable. 3. Grade 3 splenic laceration. 4. Left-sided ribs 2 through 10 fracture. 5. Left distal tibia-fibula fracture, status post repair. 6. Left distal humerus fracture, status post splinting. 7. Left forehead laceration, status post repair. 8. Urinary tract infection, uncomplicated. 9. Suspected pneumonia. 10. Acute hypocalcemia. 11. Acute metabolic acidosis, likely secondary to renal dysfunction. 12. Acute respiratory distress secondary to multiple rib fractures. 13. Acute traumatic pain. 14. History of rheumatoid arthritis. 15. Chronic kidney disease, stage 4. 16. Hypertension. 17. Macular degeneration. 18. Coronary artery disease. 19. Elevated PTH. PLAN: The patient did receive one amp of bicarb today. She will also receive bicarb at 100 an hour for a total fluid input of 100 an hour. We will start her on Rocephin to cover her possible pneumonia and urinary tract infection. We will hold chemo and DVT prophylaxis at this time and wait for hemoglobin to be stable for 48 hours. She did receive 500 mL bolus earlier for low urinary output and a base excess of -10.9. She will also receive 1 g of calcium IV. She is to be to the neuro chair b.i.d. Speech Language Pathology to evaluate. The patient will receive an NG tube and we will start trickle feeds as her mentation is intermittently poor and I do not believe she will be able to take good intake. We will continue to work on her pain regimen and renally dosed all of her medication. This patient was discussed with Dr. Verduzco before this dictation. Job ID: [id number]
--- NOTE | 2019-09-02 18:57 | RAD ---
RADIOGRAPH CHEST 1 VIEW: DATE: 09/02/2019 TIME: 6:21 PM HISTORY: 84-year-old female with "bilateral pneumonia status post chest trauma" COMPARISON: 09/02/2019 4:02 AM FINDINGS: Again noted is the silhouetting of the bilateral hemidiaphragms by changes at the bilateral lung base s, which are suspected to represent bilateral pleural effusions (and underlying bibasilar airspace densities such as atelectasis or pneumonia). Almost the entire stomach has herniated into the chest. No pulmonary edema or pneumothorax. No interval change. IMPRESSION: 1) bilateral pleural effusions. 2) nonspecific bibasilar pulmonary changes adjacent to the pleural effusions. 3) very large hiatal hernia. 4) no interval change.
[2019-09-02] MEDS ORDERED: Lidocaine Patch Removal 1 EACH TOP SCH (21:00)
[2019-09-02] MEDS: Famotidine/PF 20 mg/2ml Vial SLOW IVP SCH (21:06)
[2019-09-02] MEDS: Lidocaine 5% Patch TD SCH (23:48)
--- NOTE | 2019-09-03 00:36 | PRG ---
DATE OF SERVICE: 09/02/2019 SUBJECTIVE: The patient was seen during the evening rounds in the critical care unit in mild respiratory distress. The patient currently is sleeping and tolerating BiPAP 10/5 at this time. The patient does have prolonged expiratory phase. The patient's vital signs are stable and she remains afebrile. The patient's urinary output remains adequate at this time. The patient does have a bicarb drip infusing at 100 mL/h. The patient does have mild left upper chest flail segment. The patient's pain is controlled at this time. Bilateral breath sounds are clear, decreased breath sounds in bilateral bases. PLAN: Continue to monitor respiratory status, urinary output, and blood pressure. We will continue BiPAP overnight. We will obtain ABG if the patient appears in more distress. We will continue the patient's pain regimen. Job ID: [id number]
[2019-09-03] MEDS: Sodium Bicarbonate 150 MEQ in Dextrose 5% in Water 1,000 ML IV SCH (01:03)
[2019-09-03] MEDS: Morphine 2 MG/ML SYRINGE SLOW IVP PRN ×3 (02:39→10:53)
[2019-09-03] MEDS: Acetaminophen 500 MG TAB PO SCH ×5 (02:40→20:48)
[2019-09-03 05:00] LABS: Band 22 % (5-11); Hemoglobin 6.3 g/dL (12.0-16.0); Lymphocytes 24 % (21-51); MDiff Complete? YES; Mean Corpuscular HGB CONC 32.6 g/dL (32.0-36.0); Mean Corpuscular Hemoglobin 31.7 pg (27.0-31.0); Mean Corpuscular Volume 97.2 fL (78.0-98.0); Mean Platelet Volume 8.2 fL (7.4-10.4); Monocytes 2 % (0-10); Neutrophil 52 % (42-75); Platelet Count 109 thou/uL (130-400); Platelet Morphology Comment Appears Decreased; RBC Distribution Width 13.2 % (11.5-14.5); Red Blood Cell (RBC) Count 1.97 mill/uL (4.20-5.40); White Blood Cell (WBC) Count 7.6 thou/uL (4.8-10.8)
[2019-09-03 05:20] LABS: Anion Gap 12 mmol/L (10-20); BUN (Urea Nitrogen) 43 mg/dL (9.8-20.1); Calc. Creatinine Clearance 17 mL/min (70-130); Carbon Dioxide 22 mmol/L (23-31); Chloride 109 mmol/L (98-107); Estimated GFR-MDRD 20; Glucose 188 mg/dL (83-110); Magnesium 1.8 mg/dL (1.6-2.6); Phosphorus 3.3 mg/dL (2.3-4.7); Potassium 3.8 mmol/L (3.5-5.1); Sodium 139 mmol/L (136-145)
[2019-09-03 06:38] LABS: Actual Bicarbonate (HCO3a) 22.6 mEq/L (22-28); Base Excess (BEa) -1.8 mEq/L (-2.0 to +3.0); CO2 Tension 36.3 mmHg (35.0-45.0); Calcium, Ionized 1.11 mmol/L (1.12-1.30); Carboxyhemoglobin (COHb) 2.1 gm% (0.0-3.0); Hemoglobin (Hb) 5.9 g/dL (12.0-16.0); O2 Tension (PaO2) 68.9 mmHg (> 60.0); Potassium - ABG Lab 3.66 mmol/L (3.70-5.30); pH, Arterial 7.41 (7.35-7.45)
[2019-09-03 06:42] LABS: Hemoglobin 6.3 g/dL (12.0-16.0)
[2019-09-03 06:47] LABS: ALV-art Gradient 113.885 (0-20); Puncture Site RRAD
[2019-09-03] MEDS ORDERED: Magnesium 2 GM/50 ML 2 GM in Premix Bag 1 BAG IVPB SCH (07:15)
[2019-09-03] MEDS ORDERED: Calcium Chloride 1 GM/10 ML Abboject SYRINGE IVP SCH ×2 (07:15→11:15)
[2019-09-03] MEDS ORDERED: Calcium Chloride 13.6 MEQ in Sodium Chloride 0.9% 100 ML IVPB SCH (07:30)
[2019-09-03] MEDS: Gabapentin 100 MG CAP PO SCH (08:15)
[2019-09-03] MEDS: traMADol HCl 50 MG TAB PO SCH (08:16)
[2019-09-03] MEDS: Ferrous Sulfate 325 MG TAB PO SCH ×2 (08:20→18:02)
[2019-09-03] MEDS: Cyclobenzaprine 10 MG TAB PO PRN (08:23)
[2019-09-03] MEDS ORDERED: Sodium Chloride 0.45% 1,000 ML IV SCH ×2 (09:15→09:36)
--- NOTE | 2019-09-03 09:31 | RAD ---
PORTABLE UPRIGHT FRONTAL CHEST: Date: 09/03/2019 COMPARISON: 09/02/2019. HISTORY: Pneumonia. FINDINGS: There is a comminuted, displaced and impacted fracture of the proximal left humerus/left humeral head . There is atherosclerotic calcification of the upper abdominal aorta and the aortic arch. Hazy, nons pecific interstitial and alveolar opacity noted within the right upper lobe, worsened. Bibasilar incr eased density noted, suggesting a combination of air space disease, volume loss, and pleural fluid. A eration within the lung bases is stable. IMPRESSION: 1. Comminuted proximal left humerus fracture. 2. Stable nonspecific increased density in the lung bases. 3. Worsening aeration within the right upper lobe suggesting infectious pneumonitis or aspiration. F ollow-up imaging following treatment to document resolution advised. POS: EL
[2019-09-03] MEDS ORDERED: Furosemide 40 MG/4 ML VIAL ONE (09:37)
[2019-09-03] MEDS ORDERED: Furosemide 40 MG/4 ML VIAL SLOW IVP SCH (09:45)
[2019-09-03] MEDS: Senokot S 8.6-50 MG TAB PO SCH ×2 (10:50→20:48)
[2019-09-03] MEDS: Ascorbic Acid 500 mg Chewable Tablet PO SCH ×2 (10:51→20:48)
[2019-09-03] MEDS: Metoprolol Tartrate 50 MG TAB PO SCH (10:52)
--- NOTE | 2019-09-03 11:06 | CON ---
DATE OF CONSULTATION: HISTORY OF PRESENT ILLNESS: Ms. Dunbar is an 84-year-old female, status post ORIF of her left tibia pilon fracture, closed reduction of left shoulder. The patient is currently in ICU. She is on BiPAP overnight, having some difficulty weaning the BiPAP. The patient is following commands, but lethargic. PHYSICAL EXAMINATION: VITAL SIGNS: Upon exam today, the patient's vital signs, temperature 98.8, pulse 100, respiratory rate 22, blood pressure 147/70. GENERAL: Resting in bed, lethargic, responding to commands. EXTREMITIES: Left lower extremity; wiggling toes, wound is clean, dry, and intact. Left upper extremity; wiggling fingers, clean, dry, and intact. Brisk cap refill. LABORATORY DATA: Hemoglobin and hematocrit are 6.3 and 18.6, currently being transfused. IMPRESSION: Status post fall, multiple injuries, left distal tibia pilon fracture, left proximal humerus fracture. ASSESSMENT AND PLAN: The patient is followed by Trauma [facility], will remain on weightbearing cautions. We will follow her during the hospital course. Job ID: [id number]
[2019-09-03] MEDS: Polyethylene Glycol 3350 17 GM Packet PO SCH (11:10)
[2019-09-03] MEDS: Metoprolol Tartrate 25 MG TAB PO SCH ×2 (12:07→20:48)
[2019-09-03] MEDS: Lidocaine Patch Removal 1 EACH TOP SCH (12:08)
[2019-09-03] MEDS ORDERED: Morphine 2 MG/ML SYRINGE SLOW IVP SCH (12:30)
--- NOTE | 2019-09-03 13:21 | PRG ---
DATE OF SERVICE: 09/03/2019 SUBJECTIVE: Ms. Dunbar is 84-year-old woman who is post injury day #3, status post fall from four steps. The patient suffered multiple traumatic injuries including left distal tibia and fibula fractures for which she is postop day #2, status post ORIF of the said fractures. Additionally, she suffered grade 3 splenic laceration, left supratentorial subdural hematoma, multiple left rib fractures involving ribs 2 through 10. She has been on noninvasive mechanical ventilator support for worsening pulmonary insufficiency. This morning, she is awake and alert. She moves all extremities and follows commands. Appetite has been poor and oral intake has been inadequate since admission. Urinary output currently is adequate for this patient's age and weight. OBJECTIVE: VITAL SIGNS: This morning include blood pressure 132/74, pulse 113, respiratory rate 16, temperature 96.8 degrees Fahrenheit, oxygen saturation is 93%, off BiPAP, on 4 L by nasal cannula oxygen. HEENT: Pupils are equal, round, reactive to light bilaterally. NECK: She has no jugular venous distention noted. HEART: Reveals regular rate with sinus tachycardia. No murmurs or gallops auscultated. LUNGS: Reveals bibasilar rhonchi. Breathing regular and nonlabored. ABDOMEN: Soft, nontender, nondistended. NEUROLOGIC: Reveals no focal deficits present. LABORATORY FINDINGS: Today include a CBC with 7600 white blood cells, hemoglobin and hematocrit 6.3 and 19.2 respectively. The platelet count is 109,000. Metabolic profile; sodium 139, potassium 3.8, chloride is 109, bicarb is 22, BUN is 43, creatinine is 2.32, glucose is 188, magnesium 1.8, phosphorus is 3.3. Chest x-ray reveals bilateral pleural effusions, large hiatal hernia as well as increased perihilar markings. IMPRESSIONS: 1. Acute pulmonary insufficiency secondary to blunt chest trauma with multiple left-sided rib fractures. 2. Post injury day #3, status post fall. 3. Comminuted displaced left proximal humerus fracture. 4. Left distal tibia and fibula fractures postoperative day #2, status post open reduction and internal fixation. 5. Grade 3 splenic laceration. 6. Acute hypomagnesemia. 7. Acute blood loss anemia. PLAN: 1. The patient will be transfused with 1 unit packed red blood cells. 2. We will correct electrolyte abnormalities. 3. Increase pulmonary toileting and activity per Physical and Occupational Therapy. 4. The patient has a history of COPD. Therefore, we will place the patient on IV steroids for acute COPD exacerbation. 5. We will decrease overall total fluid intake. 6. Above findings and plan discussed with the patient and family at bedside. 7. Family indicated understanding of information given. I have answered their questions. Total critical care time : 40 minutes Job ID: [id number] MTDD
[2019-09-03] MEDS: methylPREDNISolone Sod Succ 40 MG VIAL IVP SCH ×2 (14:31→23:45)
[2019-09-03] MEDS: cefTRIAXone\\ROCEPHIN 1 GM in Sodium Chloride 0.9% 100 ML IVPB SCH (14:31)
[2019-09-03] MEDS ORDERED: Propofol 1,000 MG/100 ML VIAL IV SCH (16:20)
[2019-09-03] MEDS ORDERED: Propofol 1,000 MG/100 ML VIAL IV ONE (16:22)
[2019-09-03] MEDS ORDERED: Succinylcholine Chloride 20 MG/ML 10 ml SYRINGE FS SCH (16:30)
[2019-09-03] MEDS ORDERED: PROPOFOL 200 MG/20 ML VIAL IV SCH (16:30)
[2019-09-03] MEDS ORDERED: Ketamine 50 MG/ML (10ML VIAL) SLOW IVP SCH (16:30)
[2019-09-03 17:24] LABS: Actual Bicarbonate (HCO3a) 25.3 mEq/L (22-28); Base Excess (BEa) -0.8 mEq/L (-2.0 to +3.0); CO2 Tension 49.2 mmHg (35.0-45.0); Calcium, Ionized 1.27 mmol/L (1.12-1.30); Carboxyhemoglobin (COHb) 1.2 gm% (0.0-3.0); Hemoglobin (Hb) 8.6 g/dL (12.0-16.0); O2 Tension (PaO2) 83.8 mmHg (> 60.0); Potassium - ABG Lab 3.92 mmol/L (3.70-5.30); Puncture Site RRAD; pH, Arterial 7.33 (7.35-7.45)
[2019-09-03] MEDS ORDERED: Ventilator Sedation Protocol 1 EACH FS SCH (17:45)
[2019-09-03] MEDS ORDERED: fentaNYL Citrate/PF 2,000 MCG in Sodium Chloride 0.9% 60 ML IV SCH ×2 (17:48→18:00)
[2019-09-03] MEDS ORDERED: Propofol BOLUS 1,000 MG/100 ML VIAL IV PRN (17:48)
[2019-09-03] MEDS ORDERED: Lorazepam 2 MG/ML VIAL SLOW IVP PRN (17:48)
[2019-09-03] MEDS ORDERED: Propofol 1,000 MG/100 ML VIAL IV PRN (17:48)
[2019-09-03] MEDS ORDERED: DISCONTINUE PREVIOUS NARCOTIC PAIN MEDICATIONS AND BENZODIAZEPINES FS SCH (17:48)
[2019-09-03] MEDS ORDERED: Morphine 2 MG/ML SYRINGE SLOW IVP PRN (17:48)
[2019-09-03] MEDS ORDERED: Fentanyl BOLUS 250 ML IVPB PRN (17:48)
[2019-09-03 18:12] LABS: Anisocytosis SLIGHT = 6-15 cells (100X) (0-5/hpf); Band 50 % (5-11); Lymphocytes 3 % (21-51); MDiff Complete? YES; Mean Corpuscular Hemoglobin 29.6 pg (27.0-31.0); Mean Corpuscular Volume 92.4 fL (78.0-98.0); Mean Platelet Volume 8.9 fL (7.4-10.4); Monocytes 5 % (0-10); Neutrophil 38 % (42-75); Nucleated RBC 1 % (0); Platelet Count 114 thou/uL (130-400); Platelet Morphology Comment Appears Decreased; Polychromasia MODERATE = 3-4 cells (100X) (0-2/hpf); RBC Distribution Width 17.9 % (11.5-14.5); Reactive Lymphocytes 4 % (0-10); Red Blood Cell (RBC) Count 2.72 mill/uL (4.20-5.40); White Blood Cell (WBC) Count 10.1 thou/uL (4.8-10.8)
[2019-09-03 18:14] LABS: Anion Gap 14 mmol/L (10-20); BUN (Urea Nitrogen) 40 mg/dL (9.8-20.1); Calc. Creatinine Clearance 16 mL/min (70-130); Calcium 9.8 mg/dL (7.8-10.44); Carbon Dioxide 23 mmol/L (23-31); Chloride 108 mmol/L (98-107); Estimated GFR-MDRD 20; Glucose 163 mg/dL (83-110); Magnesium 2.3 mg/dL (1.6-2.6); Phosphorus 4.1 mg/dL (2.3-4.7); Potassium 4.2 mmol/L (3.5-5.1); Sodium 141 mmol/L (136-145)
--- NOTE | 2019-09-03 18:18 | RAD ---
KUB: Indication: History of tube placement. FINDINGS: The patient is intubated. There are patchy airspace opacities within the right lung and left lower lo be. Gastric catheter projects within a moderately large paraesophageal hernia in the region of the pr oximal gastric body. The hernia was demonstrated on a recent CT of the chest/abdomen and pelvis . IMPRESSION: 1. Gastric catheter projects in the region of the gastric body of the large paraesophageal hernia. 2. Patchy airspace opacities within the right lung and left lower lobe are suspicious for persistent pneumonia. Continued follow up is recommended. 3. Patient is now intubated from comparison chest radiograph dated 09-03-2019 at 7:26 a.m. POS: BH
--- NOTE | 2019-09-03 19:49 | PDOC.EVN ---
Event Note - Event Note Event Note: Hbg dropped this am from 8.0 to 6.3. Slight increase in HR. Urinary OP has been adequate overnight. Plan to transfuse 1 unit PRBC this morning.
[2019-09-03] MEDS: Famotidine/PF 20 mg/2ml Vial SLOW IVP SCH (20:48)
[2019-09-03] MEDS: Lidocaine 5% Patch TD SCH (23:48)
--- NOTE | 2019-09-04 00:30 | PRG ---
DATE OF SERVICE: 09/03/2019 SUBJECTIVE: The patient was seen during evening rounds in the critical care unit. The patient is currently intubated. The patient is tolerating vent and only requiring 25 mcg of fentanyl for sedation at this time. The patient was intubated earlier today for worsening pulmonary insufficiency. The patient did have a drop in her hemoglobin earlier today and was given 1 unit of packed red blood cells. The patient's repeat hemoglobin did increment appropriately. Urinary output remains adequate. OBJECTIVE: VITAL SIGNS: The patient's vital signs are stable. The patient is afebrile. RESPIRATORY: Bilateral breath sounds with mild rhonchi. EXTREMITIES: Splint to right lower extremity is clean, dry, and intact. Left upper extremity in sling and Clarke wrap. No pedal edema. PLAN: Continue to monitor urinary output and blood pressure. Continue to use minimal sedation. We will repeat labs and a chest x-ray in the morning. Continue trickle tube feeds. Job ID: [id number]
[2019-09-04] MEDS: Acetaminophen 500 MG TAB PO SCH ×4 (03:55→20:28)
[2019-09-04 04:25] LABS: Anion Gap 13 mmol/L (10-20); BUN (Urea Nitrogen) 44 mg/dL (9.8-20.1); Calc. Creatinine Clearance 16 mL/min (70-130); Calcium 9.4 mg/dL (7.8-10.44); Carbon Dioxide 24 mmol/L (23-31); Chloride 109 mmol/L (98-107); Estimated GFR-MDRD 19; Glucose 213 mg/dL (83-110); Magnesium 2.3 mg/dL (1.6-2.6); Phosphorus 3.5 mg/dL (2.3-4.7); Potassium 3.9 mmol/L (3.5-5.1); Sodium 142 mmol/L (136-145)
[2019-09-04 04:52] LABS: Hemoglobin 7.4 g/dL (12.0-16.0); Mean Corpuscular HGB CONC 32.1 g/dL (32.0-36.0); Mean Corpuscular Hemoglobin 29.5 pg (27.0-31.0); Mean Corpuscular Volume 91.9 fL (78.0-98.0); Mean Platelet Volume 8.9 fL (7.4-10.4); Platelet Count 116 thou/uL (130-400); RBC Distribution Width 17.7 % (11.5-14.5); Red Blood Cell (RBC) Count 2.49 mill/uL (4.20-5.40)
[2019-09-04 04:53] LABS: Band 20 % (5-11); Lymphocytes 6 % (21-51); Monocytes 2 % (0-10); Neutrophil 72 % (42-75)
[2019-09-04 04:54] LABS: Anisocytosis SLIGHT = 6-15 cells (100X) (0-5/hpf); Platelet Morphology Comment Appears Decreased
[2019-09-04 05:09] LABS: MDiff Complete? YES
[2019-09-04] MEDS: methylPREDNISolone Sod Succ 40 MG VIAL IVP SCH ×3 (06:05→20:34)
[2019-09-04 07:29] LABS: Actual Bicarbonate (HCO3a) 23.8 mEq/L (22-28); Base Excess (BEa) -0.1 mEq/L (-2.0 to +3.0); CO2 Tension 35.4 mmHg (35.0-45.0); Calcium, Ionized 1.23 mmol/L (1.12-1.30); Carboxyhemoglobin (COHb) 2.4 gm% (0.0-3.0); Hemoglobin (Hb) 7.2 g/dL (12.0-16.0); Potassium - ABG Lab 3.83 mmol/L (3.70-5.30); pH, Arterial 7.45 (7.35-7.45)
--- NOTE | 2019-09-04 07:47 | RAD ---
Portable frontal chest radiograph: 09/04/2019 COMPARISON: 09/03/2019 HISTORY: Evaluate pulmonary insufficiency FINDINGS: Stable endotracheal tube and nasogastric tube. Nasogastric tube curls over the lower medias tinum to the left of midline, likely within a hiatal hernia. No pneumothorax is evident. Increased density in the left lung base is noted, nonspecific and stable. This may be on the basis of soft tiss ue attenuation or less likely, left basilar infiltrate. There is increased density in the right perihilar region which may signify volume loss or infiltrate. There is also mild patchy opacity in the right infrahilar region and lateral aspect of the mid right lung zone, stable. IMPRESSION: Stable appearance of the chest.
[2019-09-04] MEDS: Senokot S 8.6-50 MG TAB PO SCH ×2 (08:08→20:28)
[2019-09-04] MEDS: Polyethylene Glycol 3350 17 GM Packet PO SCH (08:08)
[2019-09-04] MEDS: Cyclobenzaprine 10 MG TAB PO PRN (08:09)
[2019-09-04] MEDS: Metoprolol Tartrate 25 MG TAB PO SCH ×2 (08:09→20:29)
[2019-09-04] MEDS: Gabapentin 100 MG CAP PO SCH (08:09)
[2019-09-04] MEDS: Ascorbic Acid 500 mg Chewable Tablet PO SCH ×2 (08:09→20:29)
[2019-09-04] MEDS: Ferrous Sulfate 325 MG TAB PO SCH ×2 (08:10→16:39)
--- NOTE | 2019-09-04 08:28 | PRG ---
DATE OF SERVICE: 09/04/2019 SUBJECTIVE: I saw Ms. Dunbar this morning, is awake in her bed and intubated. Unfortunately, they had to intubate her yesterday midday for persistent respiratory failure, likely secondary to the rib fractures aforementioned in earlier note. From a neurologic status, she appears to continue to be intact. She wakes immediately upon my entering the room and speaking her name. She is trying to communicate a great deal, but again is unable to because of the tube. From Neurosurgery perspective, she continues to be stable and likely will sign off at this time. I will discuss the plan with Dr. Morales and if so we will plan to see her in the outpatient setting in 4-6 weeks with repeat imaging. Job ID: [id number]
--- NOTE | 2019-09-04 08:46 | CON ---
DATE OF CONSULTATION: 08/31/2019 CHIEF COMPLAINT: Left leg and left shoulder pain. HISTORY OF PRESENT ILLNESS: Ms. Dunbar is an 84-year-old female, who presents after a fall from 3 feet steps on to the concrete. The patient had positive loss of conscious, presents complaining of pain in her left wrist and her left shoulder. The patient's family is at bedside. She is resting comfortably in her bed, responding to questions. PAST MEDICAL HISTORY: Includes chronic kidney disease, macular degeneration, arthritis, questionable rheumatoid arthritis diagnosis, hypertension, congestive heart failure, pulmonary disease. PAST SURGICAL HISTORY: Hernia repairs, bilateral cataracts, hysterectomy. ALLERGIES: PENICILLIN AND CODEINE. SOCIAL HISTORY: Lives in the [facility] by herself. She is a household ambulator. The patient has no history of alcohol, no drug use. The patient is a former smoker and currently smokes an unknown amount. The patient's family is at bedside, her daughter and grandson. REVIEW OF SYSTEMS: Noncontributory. PHYSICAL EXAMINATION: VITAL SIGNS: Blood pressure 140s/70s, afebrile, heart rate 80s. GENERAL: Alert, oriented, resting comfortably in bed. EXTREMITIES: Left lower extremity has a splint clean, dry, and intact. No effusion to knee. No pain with external rotation of the hip, stable knee exam. She is able to wiggle and extend all of her toes. She had deformities in multiple other toes. Left upper extremity shows pain with internal and external rotation of her shoulder. Elbow, wrist, hand motion is intact. Pain with elbow motion with manipulation of the humerus. She sensate to motor intact with palpable radial pulse. The patient's radiographs of her shoulder show a three-part proximal humerus fracture with the shaft completely associated with the head and metaphysis of the humerus, what appears to be some comminution also of the proximal humerus. The patient's x-rays of her left ankle show a transverse metaphyseal tibia fracture, extra-articular pilon without fracture planes injuring the joint surface and a transverse tibial fracture with diffuse osteopenia. CT scan of the patient's head shows left supratentorial subdural hematoma. The patient's CT scan of chest, abdomen, pelvis showed a grade 3 splenic laceration, rib fractures, question of potential left lower lobe section of tissue concerning for lung cancer, hiatal hernia, multiple compression fractures, spondylosis, atherosclerosis, and scarring of the bilateral kidneys. The patient's CT scan of her neck shows no cervical spondylosis or evidence of acute fracture or trauma. IMPRESSION: 1. Comminuted left proximal humerus fracture, 2-part. 2. Transverse metaphyseal distal tibia fracture with distal fibular fracture, extra-articular. 3. Subdural hematoma, rib fractures, splenic laceration. ASSESSMENT AND PLAN: The patient will be made n.p.o., on-call to the OR. PLAN: We will do a closed reduction of the patient's left ankle versus percutaneous fixation versus open reduction and internal fixation. The patient has the correct fracture pattern for operative fixation from an anterior medial plate slide up and fix the tibia and strut the fibula into a plate or with a flexible nail to hold in position. Concern is for soft tissue compromise and ability to close over this wound. The patient's left proximal humerus will be planned to be treated conservatively in a sling. I discussed that a reverse shoulder arthroplasty could be performed in the future as needed for surgical fixation of this. The patient will need to be cleared by Neurosurgery for proceeding on-call to the OR. She will be made n.p.o. at midnight. She can be followed in the ICU. If she is cleared and admitted to Trauma for surgery, then we will plan to perform a fixation of her left ankle in the morning. Family understands the risks and benefits associated, which include wound complications, infection, failure of fixation, malunion, nonunion, blood clots, loss of life or limb, need for further surgeries, continued pain despite surgery intervention, understand that her mobility will need to be managed by this, this is going to be difficult her shoulder and distal humerus damage, but I am concerned about the bone quality for fixation of either one and likely she can do well with conservative management of her left proximal humerus. Job ID: [id number]
[2019-09-04] MEDS: HumaLOG 300 UNITS/3 ML VIAL SC PRN ×2 (09:07→18:51)
[2019-09-04] MEDS: Sodium Chloride 0.45% 1,000 ML IV SCH ×2 (09:08→18:42)
[2019-09-04] MEDS ORDERED: Melatonin 3 MG TAB PO PRN (10:12)
--- NOTE | 2019-09-04 10:34 | EKG ---
Test Reason : TACHYCARDIA Blood Pressure : / mmHG Vent. Rate : 123 BPM Atrial Rate : 123 BPM P-R Int : 144 ms QRS Dur : 074 ms QT Int : 328 ms P-R-T Axes : 044 016 119 degrees QTc Int : 469 ms Sinus tachycardia with Premature atrial complexes Possible Inferior infarct , age undetermined Abnormal ECG When compared with ECG of 31-AUG-2019 16:03, (Unconfirmed) Premature atrial complexes are now Present Vent. rate has increased BY 63 BPM Borderline criteria for Inferior infarct are now Present T wave inversion now evident in Inferior leads Nonspecific T wave abnormality now evident in Lateral leads Confirmed by HEENA WALL (2) on 09/04/2019 10:34:29 AM Referred By: CEDRICK TERRAZAS Confirmed By:HEENA WALL
[2019-09-04 11:24] VITALS: BMI 26.4
--- NOTE | 2019-09-04 13:25 | PRG ---
DATE OF SERVICE: 09/04/2019 SUBJECTIVE: This is an 84-year-old woman, who is post injury day #4, status post fall from steps. The patient suffered multiple traumatic injuries including completely displaced left proximal humerus fracture, left distal tibia and fibular fractures, for which the patient is status post ORIF postoperative day #3. Additionally, she sustained a grade 3 splenic laceration, which has been managed nonoperatively; left subdural hematoma, which is stable on repeat imaging; multiple left rib fractures involving ribs 2 through 10. The patient developed worsening pulmonary insufficiency yesterday despite being on noninvasive mechanical ventilator support. She was intubated and placed on mechanical ventilator support. Overnight, she has done well. This morning, she is awake and alert on the ventilator. Urinary output is marginal. OBJECTIVE: VITAL SIGNS: This morning include blood pressure 148/85, pulse 87, respiratory rate 24, maximum temperature in the last 24 hours is 100 degrees Fahrenheit, and oxygen saturation is 100% on FiO2 of 40%, on mechanical ventilator support. HEENT: Pupils are equal, round, and reactive to light and accommodation. NECK: She has no jugular venous distention noted. HEART: Reveals regular rate and rhythm. No murmurs or gallops auscultated. LUNGS: Reveal scattered rhonchi. Breathing is regular and nonlabored. NEUROLOGIC: Reveals no focal deficits present. LABORATORY FINDINGS: Today include a CBC with 7000 white blood cells, hemoglobin and hematocrit are 7.4 and 22.9 respectively. Platelet count is 116,000. Differential counts as follows, 72 segmented neutrophils and 20 bands with 6 lymphocytes and 2 monocytes. Metabolic profile; sodium 142, potassium 3.9, chloride is 109, bicarb is 24, BUN is 44, creatinine is 2.39, glucose is 213, magnesium 2.3, and phosphorus is 3.5. Chest x-ray today reveals stable bilateral pulmonary opacification with resolving left-sided pleural effusion. IMPRESSION: 1. Post injury day #4, status post fall. 2. Acute posttraumatic respiratory failure, improving. 3. Multiple left-sided rib fractures. 4. Proximal left humerus fracture, being managed nonoperatively. 5. Grade 3 splenic laceration. 6. Acute blood loss anemia secondary to multiple traumatic injuries as above. PLAN: 1. Continue mechanical ventilator support and begin ventilatory wean as tolerated. 2. We will continue burst steroid therapy for COPD exacerbation complicating the respiratory failure. 3. We will discuss with Neurosurgery regarding initiation of chemical VTE prophylaxis within the next 24 hours if adequate hemostasis is established. Total critical care time is 40 minutes. Job ID: [id number]
[2019-09-04] MEDS: cefTRIAXone\\ROCEPHIN 1 GM in Sodium Chloride 0.9% 100 ML IVPB SCH (14:45)
[2019-09-04] MEDS: Lidocaine Patch Removal 1 EACH TOP SCH (14:45)
--- NOTE | 2019-09-04 15:58 | CON ---
DATE OF CONSULTATION: 09/04/2019 CHIEF COMPLAINT: Left shoulder and left leg pain. HISTORY OF PRESENT ILLNESS: Ms. Dunbar is currently intubated in the ICU rib fractures, history of previous pulmonary disease. The patient is responding to questioning, moving her fingers and foot. PHYSICAL EXAMINATION: GENERAL: No acute distress, intubated. EXTREMITIES: The patient's left lower extremity is clean, dry, and intact, upper extremity is clean, dry, and intact. Moving toes and fingers. IMPRESSION: Status post fall; status post open reduction and internal fixation, left tibia/fibula; closed reduction, left proximal humerus. ASSESSMENT AND PLAN: The patient will be followed while in-house and will be nonweightbearing in left upper and left lower extremity. Extubation per Trauma. Job ID: [id number]
[2019-09-04] MEDS: hydrALAZINE 20 MG/ML VIAL SLOW IVP PRN (18:44)
[2019-09-04] MEDS: Famotidine/PF 20 mg/2ml Vial SLOW IVP SCH (20:29)
[2019-09-04] MEDS: Lidocaine 5% Patch TD SCH (23:57)
[2019-09-05] MEDS: Acetaminophen 500 MG TAB PO SCH ×4 (02:29→20:13)
[2019-09-05 05:48] LABS: Anion Gap 14 mmol/L (10-20); BUN (Urea Nitrogen) 51 mg/dL (9.8-20.1); Calc. Creatinine Clearance 17 mL/min (70-130); Carbon Dioxide 23 mmol/L (23-31); Chloride 105 mmol/L (98-107); Estimated GFR-MDRD 21; Glucose 172 mg/dL (83-110); Magnesium 2.4 mg/dL (1.6-2.6); Phosphorus 3.1 mg/dL (2.3-4.7); Potassium 3.6 mmol/L (3.5-5.1); Sodium 138 mmol/L (136-145)
[2019-09-05 05:58] LABS: Band 9 % (5-11); Hemoglobin 7.8 g/dL (12.0-16.0); Lymphocytes 10 % (21-51); MDiff Complete? YES; Mean Corpuscular HGB CONC 32.3 g/dL (32.0-36.0); Mean Corpuscular Volume 92.7 fL (78.0-98.0); Mean Platelet Volume 8.8 fL (7.4-10.4); Monocytes 2 % (0-10); Neutrophil 79 % (42-75); Nucleated RBC 1 % (0); Platelet Count 174 thou/uL (130-400); Platelet Morphology Comment Appears Adequate; RBC Morphology Normal; Red Blood Cell (RBC) Count 2.61 mill/uL (4.20-5.40)
[2019-09-05] MEDS: Sodium Chloride 0.45% 1,000 ML IV SCH (06:07)
[2019-09-05] MEDS: methylPREDNISolone Sod Succ 40 MG VIAL IVP SCH ×2 (06:07→14:36)
[2019-09-05] MEDS: Cyclobenzaprine 10 MG TAB PO PRN ×3 (08:37→20:45)
[2019-09-05] MEDS: Metoprolol Tartrate 25 MG TAB PO SCH ×2 (08:38→20:13)
[2019-09-05] MEDS: Ascorbic Acid 500 mg Chewable Tablet PO SCH ×2 (08:40→20:13)
[2019-09-05] MEDS: Gabapentin 100 MG CAP PO SCH (08:40)
[2019-09-05] MEDS: Ferrous Sulfate 325 MG TAB PO SCH ×2 (08:41→19:32)
[2019-09-05] MEDS: Senokot S 8.6-50 MG TAB PO SCH ×2 (08:42→20:13)
[2019-09-05] MEDS: Heparin 5,000 UNITS/ML VIAL SC SCH ×2 (08:43→20:12)
[2019-09-05] MEDS: Polyethylene Glycol 3350 17 GM Packet PO SCH (08:43)
[2019-09-05] MEDS: hydrALAZINE 20 MG/ML VIAL SLOW IVP PRN ×2 (08:48→17:25)
[2019-09-05] MEDS: Lidocaine Patch Removal 1 EACH TOP SCH (11:57)
--- NOTE | 2019-09-05 12:39 | OP ---
DATE OF PROCEDURE: 09/01/2019 PREOPERATIVE DIAGNOSES: 1. Left pilon A1 distal tibia fracture. 2. Left fibular shaft fracture, comminuted. 3. Left proximal humerus head split. POSTOPERATIVE DIAGNOSES: 1. Left pilon A1 distal tibia fracture. 2. Left fibular shaft fracture, comminuted. 3. Left proximal humerus head split. PROCEDURES PERFORMED: 1. Open reduction and internal fixation of left pilon B1 extra-articular fracture pattern, which is comminuted pilon fracture. 2. IM nail, left fibular fracture. 3. Closed reduction and coaptation splint, left proximal humerus. VENTILATION EQUIPMENT TENDER: Aj Raphael PA-C ANESTHESIOLOGIST: Walt Allen MD ANESTHESIA: The patient received an LMA. ESTIMATED BLOOD LOSS: 30 mL. TOURNIQUET TIME: 65 minutes at 300 mmHg. ANTIBIOTICS: Clindamycin 900 mg. IMPLANTS: Synthes distal medial Synthes variable locking plate six-hole, four 3.5 screws and four 2.7 locking, one 2.7 nonlocking, and a 2.5 mm flexible nail, pink. COMPLICATIONS: None. HISTORY OF PRESENT ILLNESS: Ms. Anay Dunbar is an 84-year-old female, status post fall from three steps, sustaining a distal tibia and fibular fracture as well as a proximal humerus fracture. I discussed with family risks and benefits of closed treatment of left proximal humerus and open reduction and internal fixation of her distal tibia and fibular fracture. I discussed the risks and benefits of surgery to include pain, scar, bleeding, infection, damage to vital structures, decreased range of motion and strength, continued pain despite surgical intervention, and need for further surgeries, blood clots, wound complications, loss of life or limb. The patient and family understood the risks and benefits of procedure. DESCRIPTION OF PROCEDURE: Time-out was performed designating the left lower extremity as the operative site. Procedure #1: After time-out was performed designating the left lower extremity as the operative site, we made lateral incision down through skin down on the distal tip of the fibula, used a guide pin to drill hole and placed our pink 2.5 flexible nail and passed it up the fibula, looked on AP and lateral radiographs, sorting it through and being happy with the position of the fibula, we cut it took tourniquet up and it was left up for a total of 65 minutes. I made an oblique incision on the medial malleolus down through skin. We then came down onto the neurovascular bundle posteriorly of the saphenous vein and nerve pulling it posteriorly. We created a full-thickness flap, cleaned and we extended it up the proximal humerus. We bridged the plate across the fracture pattern. Using a 6- hole plate, we slid that up the bone being happy with AP and lateral radiographs that we were in good position. We put a single screw into the shaft, compressed the plate to the bone. We moved one more screw just to ensure placing into position. We then placed two 2.7 locking screws, which we compressed across the plate, distally placed 4 total lockers looking AP and lateral radiographs and ensured appropriate position. We then moved proximally. We placed the remaining proximal 3.5 screws, three more for 4 total, bicortically moving one of the distal ones more proximally in a good bicortical fit. We made stab incision and perfect circles under x-rays and three stab incisions. We then washed. We closed over the plate distally with 0 Vicryl , 2-0 and 3-0 nylon the stab incisions and we had pinned it, pushed the fibula and closing it with 3-0 nylon. We applied a short-leg AO splint. Tourniquet was let down after 65 minutes. Procedure #2: After this, we manipulated the shoulder under fluoro seeing the head split, was not able to manipulate it in a good position, but to help with stabilization for patient comfort, we placed a coaptation splint in the axilla, padding it well with 3-inch Ortho-Glass, padding it into the axilla as well as up the shoulder, wrapped in Clarke wrap from the hand up to the shoulder and then around the waist to hold the coaptation splint in place remaining in a sling. The patient will remain in this for next 5 to 7 days for comfort. We will follow her up in house. She will receive 24 hours of antibiotics. Job ID: [id number] [facility]
[2019-09-05] MEDS ORDERED: Bisacodyl 10 MG SUPP PR SCH (14:15)
[2019-09-05] MEDS: cefTRIAXone\\ROCEPHIN 1 GM in Sodium Chloride 0.9% 100 ML IVPB SCH (14:33)
--- NOTE | 2019-09-05 14:50 | PRG ---
DATE OF SERVICE: 09/05/2019 This is Balaji Do PA-C dictating a report for James Verduzco DO. SUBJECTIVE: Ms. Dunbar is an 84-year-old female, status post fall from 4 steps. She sustained multiple traumatic injuries including left humerus fracture, left tib-fib fracture, left rib fracture, grade 3 spleen laceration, and left small subdural hematoma. She also sustained respiratory distress, on ventilation. She was extubated yesterday. The patient tolerated with extubation well. She was able to tolerate with her diet. Her vital signs in hypertension side, but then later today, blood pressure is stable, systolic 131 to 140. Her pain is in moderate control. She still has pain scale of 7 to 8 with movement. Her urine adequate. She still not yet has bowel. OBJECTIVE: GENERAL: The patient lying in bed, comfortable, in no acute respiratory distress. VITAL SIGNS: Temperature is 98.1, respiratory rate 23, O2 saturation 95% on 2 L , blood pressure 130/60, and heart rate 95. LUNGS: Scattered rales bilaterally. HEART: Regular rate and rhythm. ABDOMEN: Soft, nondistended. EXTREMITIES: Neurovascularly intact x4. Postop dressing of the left lower extremity is clean, dry, intact. Splint to left upper arm is in place. LABORATORY DATA: Today, shows white count elevated , hemoglobin is stable 7.8. Creatinine decreased relatively compared to yesterday. Electrolytes normal. ASSESSMENT: 1. Status post fall from 4 steps. 2. Small subdural hematoma, stable. 3. Left humerus fracture, conservative treatment. 4. Left ankle fracture, status post open reduction, internal fixation of left ankle fracture. 5. Grade 3 spleen laceration, stable. PLAN: We will continue supportive care, continue pain control, and adjust pain medication. Encouraged working with PT/OT. The patient will be transferred to the floor today. Neurosurgeon DVT prophylaxis with heparin subcu today. The patient was seen and evaluated with Dr. Verduzco on round this morning. 1800 patient develop sinus tachycardia HR 120-125 bpm, BP 160 systolic , complained of urging to void but could not void. After trying with different way to help patient to void, unsuccessful straight cath was placed and patients urine volume was: , patient felt better and HR decreases to 140 sinus EKG, troponin I was ordered Patient also companied of shortness of breath ' have never experience this shortness of breath in my life" while bedside nurse was trying to change patient bed sheet. RR was 23 Spo2 97% on 3l nasal, lung : rale bilaterally XR chest was order Job ID: [id number] MTDD
--- NOTE | 2019-09-05 19:28 | RAD ---
Exam: Chest one view HISTORY:Pulmonary insufficiency. Shortness of breath. Comparison: 09/04/2019 FINDINGS: Lines and tubes: Interval removal of endotracheal and nasogastric tube. Cardiac silhouette:Enlarged cardiac silhouette. Hiatal hernia is redemonstrated. Aorta: Atherosclerosis. Pulmonary vessels: Normal Costophrenic angles: Bilateral pleural effusions, unchanged. LUNGS: Chronic lung parenchymal changes. Bibasilar opacities are redemonstrated. Pneumothorax: None Osseous abnormalities: Multiple posterior left rib fractures are noted, age indeterminate. There is a lso a displaced fracture involving the proximal left humerus IMPRESSION: Interval removal of endotracheal and nasogastric tubes. Additional findings as above. Transcribed Date/Time: 09/05/2019 7:44 PM
[2019-09-05 19:32] LABS: CKMB 3.5 ng/mL (0-6.6)
[2019-09-05] MEDS ORDERED: Morphine 2 MG/ML SYRINGE SLOW IVP PRN (19:32)
[2019-09-05] MEDS: Famotidine/PF 20 mg/2ml Vial SLOW IVP SCH (20:12)
[2019-09-05] MEDS: Melatonin 3 MG TAB PO SCH (20:12)
[2019-09-05] MEDS ORDERED: Furosemide 20 MG/2 ML VIAL SLOW IVP SCH (21:00)
--- NOTE | 2019-09-05 22:42 | PRG ---
DATE OF SERVICE: 09/05/2019 SUBJECTIVE: The patient is hospital day 5 status post a ground level fall on some steps which she sustained left humerus fracture and a left tib-fib fracture in addition to rib fractures. The patient underwent open reduction and internal fixation of her tib-fib fracture, which she tolerated well. Yesterday she was extubated overnight. They reported no issues. She was on BiPAP, which she tolerated. Today, she had an issue with urinary retention that one in and out catheter revealed 600 mL of urine. She is also under treatment for urinary tract infection, that culture grew E coli. The patient also had some tachycardia and hypertension late this afternoon, the chest x-ray appeared stable. She did have elevation in her BNP and an indeterminate troponin. A 12-lead EKG showed a sinus tachycardia. PHYSICAL EXAMINATION: VITAL SIGNS: Stable. The patient is tachycardic with a heart rate between 112 and 117, it is a sinus rhythm and regular. The patient is afebrile. GENERAL: The patient is resting comfortably. She is only complaining of her left ribs hurting, but otherwise doing well. We have made adjustments to her pain medicine. She is alert and oriented. [place] Coma Scale is 15. HEENT: Unremarkable. LUNGS: She does have a moderate inspiratory and expiratory effort related to her left chest wall pain. There are scant rales bilaterally. EXTREMITIES: Neurovascularly intact x4. Postop dressings are clean, dry, and intact. ASSESSMENT AND PLAN: 1. Status post fall, hospital day 5. 2. Acute post-traumatic respiratory failure, improved. 3. Multiple left-sided rib fractures, stable. 4. Proximal left humerus fracture, treated . 5. Status post open reduction and internal fixation of left tib-fib fracture. 6. Grade 3 splenic laceration, stable. 7. Acute blood loss anemia secondary to above, improving. 8. Fluid overload. Plan will be to discontinue her IV fluids. We will give her 20 mg of Lasix today to see if that improves her symptoms. We have made adjustments to her pain medications, and we will continue to follow her. The patient was started on chemical VTE prophylaxis today. Job ID: [id number]
[2019-09-06] MEDS: Lidocaine 5% Patch TD SCH (01:13)
[2019-09-06] MEDS: Acetaminophen 500 MG TAB PO SCH ×4 (02:44→22:53)
[2019-09-06] MEDS: hydrALAZINE 20 MG/ML VIAL SLOW IVP PRN ×2 (03:34→09:30)
[2019-09-06 05:49] LABS: Anion Gap 16 mmol/L (10-20); BUN (Urea Nitrogen) 55 mg/dL (9.8-20.1); Calc. Creatinine Clearance 18 mL/min (70-130); Carbon Dioxide 22 mmol/L (23-31); Chloride 104 mmol/L (98-107); Estimated GFR-MDRD 22; Glucose 212 mg/dL (83-110); Magnesium 2.2 mg/dL (1.6-2.6); Phosphorus 2.4 mg/dL (2.3-4.7); Potassium 3.7 mmol/L (3.5-5.1); Sodium 138 mmol/L (136-145)
[2019-09-06 06:14] LABS: Hemoglobin 8.2 g/dL (12.0-16.0); Mean Corpuscular HGB CONC 31.9 g/dL (32.0-36.0); Mean Corpuscular Hemoglobin 29.3 pg (27.0-31.0); Mean Corpuscular Volume 91.9 fL (78.0-98.0); Platelet Count 228 thou/uL (130-400); RBC Distribution Width 17.7 % (11.5-14.5); Red Blood Cell (RBC) Count 2.78 mill/uL (4.20-5.40); White Blood Cell (WBC) Count 19.1 thou/uL (4.8-10.8)
[2019-09-06 06:15] LABS: Band 11 % (5-11); Lymphocytes 15 % (21-51); MDiff Complete? YES; Mean Platelet Volume 8.9 fL (7.4-10.4); Metamyelocyte 3 % (0-0); Monocytes 5 % (0-10); Neutrophil 66 % (42-75)
[2019-09-06] MEDS: Ferrous Sulfate 325 MG TAB PO SCH ×2 (08:24→18:14)
[2019-09-06] MEDS: Senokot S 8.6-50 MG TAB PO SCH ×2 (08:25→22:53)
[2019-09-06] MEDS: Gabapentin 100 MG CAP PO SCH (08:26)
[2019-09-06] MEDS: Metoprolol Tartrate 25 MG TAB PO SCH ×4 (08:26→22:53)
[2019-09-06] MEDS: Ascorbic Acid 500 mg Chewable Tablet PO SCH ×2 (08:27→22:53)
[2019-09-06] MEDS: Heparin 5,000 UNITS/ML VIAL SC SCH ×2 (08:28→22:53)
[2019-09-06] MEDS: Polyethylene Glycol 3350 17 GM Packet PO SCH (08:28)
[2019-09-06] MEDS ORDERED: Morphine 2 MG/ML SYRINGE SLOW IVP SCH (08:45)
[2019-09-06] MEDS ORDERED: cloNIDine 0.1 MG TAB PO SCH (09:00)
[2019-09-06] MEDS ORDERED: Metoprolol Tartrate 25 MG TAB PO SCH (09:32)
[2019-09-06] MEDS ORDERED: traMADol HCl 50 MG TAB PO PRN (09:34)
[2019-09-06] MEDS ORDERED: Bisacodyl 10 MG SUPP PR SCH (09:45)
[2019-09-06] MEDS ORDERED: predniSONE 20 MG TAB PO SCH (10:00)
[2019-09-06] MEDS ORDERED: methylPREDNISolone Sod Succ 40 MG VIAL IVP SCH (14:00)
[2019-09-06] MEDS: Lidocaine Patch Removal 1 EACH TOP SCH (15:32)
[2019-09-06] MEDS ORDERED: Budesonide 0.25 MG/2 ML NEB INH SCH (18:30)
[2019-09-06] MEDS: Lorazepam 2 MG/ML VIAL SLOW IVP PRN (19:08)
--- NOTE | 2019-09-06 19:15 | PRG ---
DATE OF SERVICE: 09/06/2019 SUBJECTIVE: Ms. Dunbar is an 84-year-old female, status post fall from four steps. She sustained multiple traumatic injury includes humerus fracture, tib-fib fracture, left rib fracture, grade 3 spleen laceration, and left small subdural hematoma. She also sustained respiratory distress, on ventilation and re-extubation the other day. Yesterday, the patient sustained overload and urinary retention already resolved. This morning, the patient's vital signs are being more stable; however, her blood pressure is still in the upside and she started to develop delirium with confused statement. She worked limited with physical therapy due to some pain from the fracture site. OBJECTIVE: GENERAL: The patient lying in bed comfortable with no acute respiratory distress. Alert, but confused. GCS 14 due to confusion. VITAL SIGNS: Temperature 97.9, heart rate is 102, blood pressure 172/103, and O2 saturation 95% on 2 L cannula. LUNGS: Little scattered rale bilaterally. HEART: Regular rate and rhythm. ABDOMEN: Soft and nondistended. SKIN: Postop dressing of the left tib-fib; clean, dry, and intact. EXTREMITIES: Neurovascularly intact x4. ASSESSMENT: 1. Status post fall from four steps. 2. Small subdural hematoma, stable. 3. Left humerus fracture, conservative treatment. 4. Left ankle fracture, status post open reduction and internal fixation with left ankle fracture. 5. Grade 3 spleen laceration. 6. Left rib fracture, conservative treatment. 7. Posttraumatic respiratory distress, improved. PLAN: Continue supportive care. Continue pain control and chest pain medication. Adjust blood pressure medication. Encourage working with PT/OT. The patient will be transferred to the floor today. Anticipate placement in detention facility or rehabilitation facility. Job ID: [id number]
[2019-09-06] MEDS: Melatonin 3 MG TAB PO SCH (22:53)
[2019-09-06] MEDS: Famotidine/PF 20 mg/2ml Vial SLOW IVP SCH (22:53)
--- NOTE | 2019-09-06 23:39 | PRG ---
DATE OF SERVICE: 09/06/2019 SUBJECTIVE: The patient is currently in the IMCU. She was moved from the critical care unit today. She was out of bed once today, but toward the end of the day, nurses reported that she had become agitated, requiring a dose of Ativan. At the time of my visit, the patient was sleeping soundly. We resumed her home blood pressure medicine, which seems to have helped. She is tolerating a diet. Her pain is controlled. Her oxygen saturations have maintained in the 90s. PHYSICAL EXAMINATION: VITAL SIGNS: Stable. The patient is afebrile. GENERAL: The patient is currently asleep and of course, did not wake her after her reported agitation. We will allow her to rest as this sleep rest cycle may be contributing to her issues as the previous nights, she would be awake when I went up there. RESPIRATORY: Her respirations are nonlabored. Her lungs are clear to auscultation bilaterally. HEART: Regular rate and rhythm. ABDOMEN: Soft with normal bowel sounds. EXTREMITIES: Warm and dry. Capillary refill is less than 3 seconds. ASSESSMENT/PLAN: 1. Status post ground level fall, hospital day #6. 2. Acute posttraumatic respiratory failure, resolved. 3. Multiple left-sided rib fractures, stable. 4. Proximal left humerus fracture, treated conservatively. 5. Status post open reduction and internal fixation of left tib-fib fracture. 6. Grade 3 splenic laceration, stable. 7. Acute blood loss anemia secondary to above, stable, improved. 8. Fluid overload, improving. 9. Urinary tract infection with culture growing Escherichia coli, treated with appropriate antibiotics, resolved. PLAN: Plan will be to continue supportive care. Encourage out of bed, Physical/Occupational Therapy, and await final placement decision. Job ID: [id number]
[2019-09-07] MEDS: Lidocaine 5% Patch TD SCH (00:54)
[2019-09-07] MEDS: hydrALAZINE 20 MG/ML VIAL SLOW IVP PRN (03:10)
[2019-09-07] MEDS: Acetaminophen 500 MG TAB PO SCH ×5 (03:30→20:37)
[2019-09-07] MEDS: Metoprolol Tartrate 25 MG TAB PO SCH ×5 (03:31→20:38)
[2019-09-07 04:10] LABS: Band 1 % (5-11); Hemoglobin 8.7 g/dL (12.0-16.0); Hypochromia SLIGHT = 6-15 cells (100X) (0-5/hpf); Lymphocytes 18 % (21-51); MDiff Complete? YES; Mean Corpuscular HGB CONC 32.3 g/dL (32.0-36.0); Mean Corpuscular Volume 92.7 fL (78.0-98.0); Mean Platelet Volume 8.7 fL (7.4-10.4); Monocytes 17 % (0-10); Neutrophil 64 % (42-75); Platelet Count 228 thou/uL (130-400); Platelet Morphology Comment Appears Adequate; RBC Distribution Width 17.5 % (11.5-14.5); Red Blood Cell (RBC) Count 2.89 mill/uL (4.20-5.40); White Blood Cell (WBC) Count 19.1 thou/uL (4.8-10.8)
[2019-09-07 04:18] LABS: Anion Gap 15 mmol/L (10-20); BUN (Urea Nitrogen) 57 mg/dL (9.8-20.1); Calc. Creatinine Clearance 18 mL/min (70-130); Calcium 9.1 mg/dL (7.8-10.44); Carbon Dioxide 24 mmol/L (23-31); Chloride 106 mmol/L (98-107); Estimated GFR-MDRD 23; Glucose 169 mg/dL (83-110); Magnesium 2.4 mg/dL (1.6-2.6); Phosphorus 3.5 mg/dL (2.3-4.7); Potassium 4.6 mmol/L (3.5-5.1); Sodium 140 mmol/L (136-145)
[2019-09-07] MEDS: Lorazepam 2 MG/ML VIAL SLOW IVP PRN (04:24)
[2019-09-07] MEDS ORDERED: predniSONE 20 MG TAB PO SCH (09:00)
--- NOTE | 2019-09-07 12:22 | PRG ---
DATE OF SERVICE: 09/07/2019 SUBJECTIVE: Anay is an 84-year-old female, who is postop day 6 from an open reduction and internal fixation of the left distal tibia and intramedullary ernesto of the fibula. We also performed a closed reduction and coaptation splint of the left proximal humerus fracture. Subsequent chest radiographs demonstrated still a persistent now reduction of the left shoulder despite closed reduction and coaptation splint. OBJECTIVE: She is neurovascularly intact to left upper extremity. She does have ecchymosis. The patient currently is a little sedated with Ativan and does not communicate effectively, but has good air, patent airway and responds, arousable to exam. Her left lower extremity splint is intact. She is neurovascularly intact in the digits. IMPRESSION: 1. Left proximal humerus displaced varus angulated fracture. 2. Left distal tibia, status post open reduction and internal fixation with left distal fibula, status post reduction with intramedullary nail fixation. PLAN: Continue current care. Discontinue coaptation splint. We will continue to follow the patient as an inpatient. Job ID: [id number]
[2019-09-07] MEDS: Ferrous Sulfate 325 MG TAB PO SCH ×2 (12:42→16:35)
[2019-09-07] MEDS: Ascorbic Acid 500 mg Chewable Tablet PO SCH ×2 (12:43→20:38)
[2019-09-07] MEDS: Polyethylene Glycol 3350 17 GM Packet PO SCH (12:43)
[2019-09-07] MEDS: Gabapentin 100 MG CAP PO SCH (12:43)
[2019-09-07] MEDS: Senokot S 8.6-50 MG TAB PO SCH ×2 (12:45→20:37)
--- NOTE | 2019-09-07 13:14 | PQF ---
CLINICAL DOCUMENTATION IMPROVEMENT CLARIFICATION FORM: ICD-10 Updated PLEASE DO AN ADDENDUM TO THE PROGRESS NOTE WITH ANY DOCUMENTATION UPDATES OR ADDITIONS AND CARRY THROUGH TO DC SUMMARY. THANK YOU. DATE: 09/07/19 ATTN: DR. EARLE PA-C Please exercise your independent, professional judgment in responding to the clarification form. Clinical indicators are provided on the bottom of this form for your review Please check appropriate box(s): [ ] Cerebral edema / Vasogenic edema [ ] Compression of brain Due to: [ ] Intracranial hematoma [ ] Acute cerebral infarction [ X ] Traumatic brain injury [ ] Other diagnosis [ ] Unable to determine In addition, please specify: Present on Admission (POA): [ X ] Yes [ ] No [ ] Unable to determine For continuity of documentation, please document condition throughout progress notes and discharge summary. Thank You. CLINICAL INDICATORS - SIGNS / SYMPTOMS / LABS / RESULTS AND LOCATION IN EMR CONSULTATION REPORT 09/01: "THERE IS A MEASURABLE MIDLINE SHIFT, WHICH AT MOST APPEARS 2 TO [address] 08/31: "THERE IS LEFT TO RIGHT MIDLINE SHIFT OF THE SEPTUM PELLUCIDUM A DISTANCE OF 0.4 CM. RISKS: SUBDURAL HEMATOMA (CONSULTATION REPORT 09/01) TREATMENT: IMCU MONITORING BRAIN CT 08/31, 09/01 NEUROSURGERY CONSULT (08/31) NEURO CHECKS Q 4 HOURS (ORDERED 09/02) (This form is maintained as a part of the permanent medical record) 2014 [employer]. All Rights Reserved QUENTIN [email or web address] Office: [phone] [facility]
--- NOTE | 2019-09-07 14:46 | PRG ---
DATE OF SERVICE: 09/07/2019 SUBJECTIVE: Ms. Dunbar is an 84-year-old female, status post fall from a four steps. She sustained multiple traumatic injuries including humerus fracture, left tib-fib fracture, left rib fracture, grade 3 spleen laceration, and left small subdural hematoma. She also sustained respiratory distress, improved. The patient was transferred to [facility] yesterday. Heart rate is tachycardia, is improved. However, her blood pressure is still in the high end. She worked limited with PT/OT and see there still has some level of delirium. She had 5 bowels today. OBJECTIVE: GENERAL: The patient is lying in bed comfortable with no acute respiratory distress. Confused. GCS 14. VITAL SIGNS: Temperature 98.8, heart rate 81, O2 saturation is 100% on 2 L, and blood pressure 154/74. LUNGS: Scattered rale bilaterally. HEART: Regular rate and rhythm. ABDOMEN: Soft and nondistended. EXTREMITIES: Left upper extremity is on splint. Neurovascularly intact. Left lower extremity postoperative splint and dressing clean, dry, intact. Neurovascularly intact . LABORATORY DATA: Laboratory shows white count 19,000, hemoglobin 8.7. Chemistry shows sodium 140, potassium is 4.6, creatinine 2.08, and magnesium is 2.4. ASSESSMENT: 1. Status post fall from four steps. 2. Small subdural hematoma, stable. 3. Left humerus fracture, conservative treatment, stable. 4. Left ankle fracture, status post open reduction and internal fixation of left ankle fracture. 5. Grade 3 spleen laceration, stable. 6. Left rib fracture, conservative treatment. 7. Posttraumatic respiratory distress, improved. PLAN: Plan will be to continue supportive care. Continue pain control. Adjust blood pressure medication. Encourage working with PT/OT. Encourage nutrition intact and discontinue lactulose today. Anticipate placement in snf facility or rehabilitation facility. Job ID: [id number]
[2019-09-07] MEDS: Heparin 5,000 UNITS/ML VIAL SC SCH ×2 (16:17→20:37)
[2019-09-07] MEDS: Lidocaine Patch Removal 1 EACH TOP SCH (16:18)
[2019-09-07] MEDS: Famotidine/PF 20 mg/2ml Vial SLOW IVP SCH (20:37)
[2019-09-07] MEDS: Melatonin 3 MG TAB PO SCH (20:38)
--- NOTE | 2019-09-07 22:13 | PRG ---
DATE OF SERVICE: 09/07/2019 SUBJECTIVE: The patient remains in the IMCU. She reportedly had no issues today. She was able to work briefly with physical and occupational therapy. She is tolerating a diet. Her pain is controlled. Since resuming her home medications, her blood pressure has improved. PHYSICAL EXAMINATION: VITAL SIGNS: Stable. The patient is afebrile. GENERAL: The patient is resting comfortably in bed. She is asleep, when I entered the room, but did awaken with very limited verbal stimuli. She follows simple commands and answered that she was not in any pain, when questioned. LUNGS: Clear to auscultation bilaterally. HEART: Regular rate and rhythm. ABDOMEN: Soft and nontender. EXTREMITIES: Neurovascularly intact x4. Her postop dressing is clean, dry, and intact. ASSESSMENT: 1. Status post fall on stairs, hospital day #7. 2. Small subdural hematoma, stable. 3. Left humerus fracture, treated conservatively, stable. 4. Status post open reduction and internal fixation of left tibia and fibular fracture, stable. 5. Grade 3 splenic laceration, stable. 6. Left rib fractures, stable. 7. Post-traumatic respiratory distress, improved. 8. Urinary tract infection, resolved. PLAN: Plan will be to continue supportive care. Encourage physical and occupational therapy and await placement decision. We will discuss moving the patient to the surgical floor also. Job ID: [id number]
[2019-09-08] MEDS: Lidocaine 5% Patch TD SCH ×2 (00:31→23:48)
[2019-09-08] MEDS: Acetaminophen 500 MG TAB PO SCH ×4 (03:59→19:44)
[2019-09-08] MEDS: Ascorbic Acid 500 mg Chewable Tablet PO SCH ×2 (08:06→19:45)
[2019-09-08] MEDS: Ferrous Sulfate 325 MG TAB PO SCH ×2 (08:06→16:42)
[2019-09-08] MEDS: Gabapentin 100 MG CAP PO SCH (08:07)
[2019-09-08] MEDS: Senokot S 8.6-50 MG TAB PO SCH ×2 (08:07→19:46)
[2019-09-08] MEDS: Heparin 5,000 UNITS/ML VIAL SC SCH ×2 (08:07→19:45)
[2019-09-08] MEDS: Metoprolol Tartrate 25 MG TAB PO SCH ×4 (08:07→19:46)
[2019-09-08] MEDS: Polyethylene Glycol 3350 17 GM Packet PO SCH (08:07)
--- NOTE | 2019-09-08 11:21 | PRG ---
DATE OF SERVICE: 09/08/2019 SUBJECTIVE: Ms. Dunbar is an 84-year-old female, status post fall from a four step. She sustained multiple traumatic injury including subdural hematoma, left humerus fracture, left tib-fib fracture, left rib fracture, grade 3 spleen laceration. She also sustained respiratory distress, on ventilation, extubated successfully, and she has been stable since. Last night, the patient slept well and her delirium improved. She able to eat some solid food. Her vital signs have been stable. She was able to have one bowel yesterday and her urine adequate. OBJECTIVE: GENERAL: The patient is lying in bed, comfortable with no acute respiratory distress. Confusion is improved. GCS is 15. VITAL SIGNS: Temperature 97.9, heart rate 88, respiratory rate 20, O2 saturation 100% on 3 L cannula, and blood pressure 163/69. LUNGS: Clear bilaterally. HEART: Regular rate and rhythm. ABDOMEN: Soft, nondistended. EXTREMITIES: Left upper extremity is on splint, neurovascularly intact. Left lower extremity postoperative splint, dressing clean, dry, and intact, neurovascularly intact. ASSESSMENT: 1. Status post fall from four steps. 2. Small subdural hematoma, stable. 3. Left humerus fracture, conservative treatment, stable. 4. Left rib fracture, conservative treatment, stable. 5. Left ankle fracture, status post ORIF of left ankle fractures. 6. Grade 3 spleen laceration, stable. 7. Posttraumatic respiratory distress, improved. 8. Acute kidney injury on chronic kidney disease, stable. PLAN: We will continue supportive care. Continue pain control. Continue working with PT, OT. Family wanted placement in [facility]. Family is looking for a place. They have not decided to which rehab rehabilitation facility they would choose, probably they will come up with a place on Tuesday. Job ID: [id number]
[2019-09-08] MEDS: Lidocaine Patch Removal 1 EACH TOP SCH (12:01)
[2019-09-08] MEDS: Famotidine/PF 20 mg/2ml Vial SLOW IVP SCH (19:43)
[2019-09-08] MEDS: Melatonin 3 MG TAB PO SCH (19:46)
[2019-09-08] MEDS: Famotidine 20 MG TAB PO SCH (20:03)
[2019-09-08] MEDS: Cyclobenzaprine 10 MG TAB PO PRN (20:16)
[2019-09-09] MEDS: Acetaminophen 500 MG TAB PO SCH ×4 (03:36→21:30)
[2019-09-09] MEDS: Heparin 5,000 UNITS/ML VIAL SC SCH ×2 (07:58→21:30)
[2019-09-09] MEDS: Metoprolol Tartrate 25 MG TAB PO SCH ×4 (07:59→21:30)
[2019-09-09] MEDS: Polyethylene Glycol 3350 17 GM Packet PO SCH (07:59)
[2019-09-09] MEDS: Gabapentin 100 MG CAP PO SCH (07:59)
[2019-09-09] MEDS: Senokot S 8.6-50 MG TAB PO SCH ×2 (07:59→21:30)
[2019-09-09] MEDS: Ascorbic Acid 500 mg Chewable Tablet PO SCH ×2 (08:00→21:30)
[2019-09-09] MEDS: Ferrous Sulfate 325 MG TAB PO SCH ×2 (08:00→16:00)
--- NOTE | 2019-09-09 11:53 | PRG ---
DATE OF SERVICE: 09/09/2019 SUBJECTIVE: Ms. Dunbar is an 84-year-old female, status post fall from 4 steps. She sustained multiple traumatic injuries including subdural hematoma, stable; left humerus fracture, conservative treatment; left rib fracture; left tib-fib fracture, status post ORIF; and grade 3 spleen laceration, stable. She also sustained respiratory distress, on ventilation, extubated successfully and has been stable since. Since yesterday, the patient has been doing good, pain is well controlled. She slept well last night. Her delirium is stable. She is able to eat some solid food. Her vital signs are stable. She had bowel yesterday. Her urine is adequate. OBJECTIVE: GENERAL: The patient is lying in bed, comfortable with no acute respiratory distress. Still has some level of confusion, but alert and awake. VITAL SIGNS: Temperature 98.1, heart rate 79, respiratory rate 16, O2 saturation 96% on 2 L, blood pressure 148/74. LUNGS: Clear bilaterally. HEART: Regular rate and rhythm. ABDOMEN: Soft and nondistended. EXTREMITIES: Neurovascularly intact x4. Postop dressing is clean, dry, intact. ASSESSMENT: 1. Status post fall from 4 steps. 2. Subdural hematoma, stable. 3. Left humerus fracture, conservative treatment, stable. 4. Left rib fracture, conservative treatment, stable. 5. Left ankle fracture, status post open reduction and internal fixation of left ankle fracture. 6. Grade 3 spleen laceration, stable. 7. Posttraumatic respiratory distress, improved. 8. Acute kidney injury on chronic kidney disease, stable. PLAN: Continue supportive care. Continue pain control. Continue working with PT and OT. Awaiting for family's answer for placement in [facility]. Continue working with PT and OT. Continue noting DVT prophylaxis and gastritis prophylaxis. Job ID: [id number]
[2019-09-09] MEDS: Lidocaine Patch Removal 1 EACH TOP SCH (12:06)
[2019-09-09] MEDS: Melatonin 3 MG TAB PO SCH (21:30)
[2019-09-09] MEDS: Famotidine 20 MG TAB PO SCH (21:30)
[2019-09-10] MEDS: Lidocaine 5% Patch TD SCH (02:08)
[2019-09-10] MEDS: Acetaminophen 500 MG TAB PO SCH ×4 (03:35→20:31)
--- NOTE | 2019-09-10 03:54 | PRG ---
DATE OF SERVICE: 09/10/2019 SUBJECTIVE: The patient remains on the surgical floor. She is status post fall from approximately 4 stairs, where she sustained a subdural hematoma, left rib fractures, left humerus fracture that are being treated conservatively and underwent open reduction and internal fixation for left tib-fib fracture. She also sustained a grade 3 splenic laceration that has remained stable. OBJECTIVE: VITAL SIGNS: Stable. The patient is afebrile. GENERAL: The patient is resting comfortably in bed. She is asleep and the nurses asked that I not disturb her as she does have some agitation at times when awake. She was able to work with Physical Therapy today. RESPIRATIONS: Nonlabored. EXTREMITIES: Her postop dressings are clean, dry, and intact. Her splints are intact. ASSESSMENT/PLAN: 1. Status post fall from approximately 4 steps. 2. Small subdural hematoma, stable. 3. Left humerus fracture, treated conservatively, stable. 4. Status post open reduction and internal fixation of left tibia and fibular fracture, stable. 5. Grade 3 splenic laceration, stable. 6. Left rib fractures, stable. 7. Posttraumatic respiratory distress, resolved. 8. Urinary tract infection, resolved. 9. Acute blood loss anemia, improving. PLAN: Plan will be to continue supportive care. Encourage Physical and Occupational Therapy and await placement decision. Job ID: [id number]
[2019-09-10] MEDS: Senokot S 8.6-50 MG TAB PO SCH ×2 (09:18→20:32)
[2019-09-10] MEDS: Metoprolol Tartrate 25 MG TAB PO SCH ×4 (09:18→20:31)
[2019-09-10] MEDS: Ascorbic Acid 500 mg Chewable Tablet PO SCH ×2 (09:18→20:31)
[2019-09-10] MEDS: Gabapentin 100 MG CAP PO SCH (09:18)
[2019-09-10] MEDS: Heparin 5,000 UNITS/ML VIAL SC SCH ×2 (09:20→20:31)
[2019-09-10] MEDS: Ferrous Sulfate 325 MG TAB PO SCH ×2 (09:20→18:11)
[2019-09-10] MEDS: Polyethylene Glycol 3350 17 GM Packet PO SCH (09:21)
[2019-09-10 11:36] LABS: Hemoglobin 7.6 g/dL (12.0-16.0); Mean Corpuscular HGB CONC 30.8 g/dL (32.0-36.0); Mean Corpuscular Hemoglobin 30.3 pg (27.0-31.0); Mean Corpuscular Volume 98.4 fL (78.0-98.0); Mean Platelet Volume 8.8 fL (7.4-10.4); Platelet Count 277 thou/uL (130-400); Red Blood Cell (RBC) Count 2.52 mill/uL (4.20-5.40); White Blood Cell (WBC) Count 15.1 thou/uL (4.8-10.8)
[2019-09-10 11:56] LABS: Band 3 % (5-11); Eosinophils 1 % (0-10); Hypochromia SLIGHT = 6-15 cells (100X) (0-5/hpf); Lymphocytes 13 % (21-51); MDiff Complete? YES; Metamyelocyte 3 % (0-0); Monocytes 3 % (0-10); Neutrophil 77 % (42-75); Platelet Morphology Comment Appears Adequate; Polychromasia SLIGHT = 2-3 cells (100X) (0-2/hpf)
[2019-09-10 12:02] LABS: Anion Gap 17 mmol/L (10-20); BUN (Urea Nitrogen) 46 mg/dL (9.8-20.1); Calc. Creatinine Clearance 21 mL/min (70-130); Calcium 8.7 mg/dL (7.8-10.44); Carbon Dioxide 21 mmol/L (23-31); Chloride 104 mmol/L (98-107); Estimated GFR-MDRD 26; Glucose 134 mg/dL (83-110); Potassium 3.9 mmol/L (3.5-5.1); Sodium 138 mmol/L (136-145)
--- NOTE | 2019-09-10 12:13 | PRG ---
DATE OF SERVICE: 09/10/2019 SUBJECTIVE: The patient is feeling quite well this morning and is making jokes. She is now on room air. She had been using oxygen by nasal cannula over the weekend. She feels her pain is well controlled. She notes that her left side is sore since physical therapy has been working with her. OBJECTIVE: VITAL SIGNS: Stable. GENERAL: The patient is awake, alert, and oriented. RESPIRATORY: No acute respiratory distress. EXTREMITIES: Postop dressings clean, dry, intact. NEUROLOGIC: Neurovascularly intact x4. ASSESSMENT: 1. Status post fall from approximately 4 steps. 2. Small subdural hematoma, stable. 3. Left humerus fracture, treated conservatively, stable. 4. Status post open reduction and internal fixation of left tibia and fibular fracture. Postop day #8. 5. Grade 3 splenic laceration, stable. 6. Left rib fracture, stable. 7. Posttraumatic respiratory distress, resolved. 8. Urinary tract infection, resolved. 9. Acute blood loss anemia, improving. PLAN: Continue supportive care. Continue physical and occupational therapy. The patient is awaiting placement. Job ID: [id number] MTDD
[2019-09-10] MEDS: Lidocaine Patch Removal 1 EACH TOP SCH (12:55)
--- NOTE | 2019-09-10 18:46 | EKG ---
Test Reason : STAT Blood Pressure : / mmHG Vent. Rate : 099 BPM Atrial Rate : 099 BPM P-R Int : 142 ms QRS Dur : 082 ms QT Int : 348 ms P-R-T Axes : 044 025 073 degrees QTc Int : 446 ms Normal sinus rhythm Nonspecific ST and T wave abnormality Abnormal ECG When compared with ECG of 01-SEP-2019 20:33, Premature atrial complexes are no longer Present Borderline criteria for Inferior infarct are no longer Present Confirmed by LUZ SHIN, DR. Johnson ([id number]) on 09/10/2019 6:46:15 PM Referred By: LATONYA Confirmed By:DR. Elizabeth ESCOBAR MD
[2019-09-10] MEDS: Famotidine 20 MG TAB PO SCH (20:31)
[2019-09-10] MEDS: Melatonin 3 MG TAB PO SCH (20:31)
--- NOTE | 2019-09-11 01:14 | PRG ---
DATE OF SERVICE: 09/11/2019 SUBJECTIVE: The patient remains on the surgical floor. She is status post fall down approximately four stairs, in which she sustained a subdural hematoma, left-sided rib fractures, left humerus fracture, and a left tib-fib fracture. The patient's humerus fracture is being treated conservatively and she underwent open reduction and internal fixation of her lower extremity fracture. The patient also sustained a grade 3 splenic laceration that has remained stable. There were no reported issues today. She did work with Physical and Occupational Therapy. Her pain was controlled and she is tolerating a diet. PHYSICAL EXAMINATION: VITAL SIGNS: Stable. The patient is afebrile. GENERAL: The patient is resting comfortably in bed. She was asleep at the time of my visit and I did not awaken her. RESPIRATORY: Respirations appear nonlabored. SKIN: Postop dressings are clean, dry, and intact. Her splint is intact. ASSESSMENT: 1. Status post fall from approximately four steps. 2. Small subdural hematoma, stable. 3. Left humerus fracture, treated conservatively, stable. 4. Status post open reduction and internal fixation of left tibia and fibular fracture, stable. 5. Grade 3 splenic laceration, stable. 6. Left rib fractures, stable. 7. Posttraumatic respiratory distress, resolved. 8. Urinary tract infection, resolved. 9. Acute blood loss anemia, being treated with iron and vitamin C. PLAN: Will be to continue supportive care. Encourage physical and occupational therapy and await placement decision. Job ID: [id number]
[2019-09-11] MEDS: Lidocaine 5% Patch TD SCH (02:47)
[2019-09-11] MEDS: Acetaminophen 500 MG TAB PO SCH ×3 (02:48→14:15)
[2019-09-11] MEDS: Senokot S 8.6-50 MG TAB PO SCH (09:13)
[2019-09-11] MEDS: Ascorbic Acid 500 mg Chewable Tablet PO SCH (09:14)
[2019-09-11] MEDS: Polyethylene Glycol 3350 17 GM Packet PO SCH (09:14)
[2019-09-11] MEDS: Gabapentin 100 MG CAP PO SCH (09:14)
[2019-09-11] MEDS: Heparin 5,000 UNITS/ML VIAL SC SCH (09:15)
[2019-09-11] MEDS: Ferrous Sulfate 325 MG TAB PO SCH (09:15)
[2019-09-11] MEDS: Metoprolol Tartrate 25 MG TAB PO SCH ×2 (09:15→12:38)
--- NOTE | 2019-09-11 11:08 | CON ---
DATE OF CONSULTATION: 09/11/2019 HISTORY OF PRESENT ILLNESS: Ms. Dunbar is an 84-year-old female, status post fall from steps, sustaining a left proximal humerus fracture and a left distal tibia fracture. She underwent open reduction and internal fixation the next day after injury at admission on 09/01. The patient is currently resting in bed. She is planned to be transferred to the [facility], close to the family. She complains of rib pain. Otherwise, sling clean, dry, and intact. PHYSICAL EXAMINATION: VITAL SIGNS: Afebrile. GENERAL: Alert and oriented female, in no acute distress. EXTREMITIES: Left upper extremity; edema and swelling to the left hand. Elbow flexion and extension, intact. Finger flexion and extension intact. Sling in place. Left lower extremity; splint clean, dry, and intact. Brisk cap refill of the left leg. IMPRESSION: 1. Left A1 pilon fracture, status post open reduction and internal fixation. 2. Left proximal humerus fracture, head split. ASSESSMENT AND PLAN: The patient got out of a protracted time in the ICU rib fractures and problems with her lungs. She is currently resting in the bed. She will need 12 weeks of nonweightbearing to her left lower extremity. Her left shoulder may ultimately require reverse shoulder arthroplasty, but given all of her history, I elected to treat her conservatively. At this time, she will need sutures out in about a week and can be transitioned to a boot on the left side. The patient will need follow up with me for postop management after she comes out of her care. Job ID: [id number]
[2019-09-11 11:22] VITALS: BP 138/68; TEMP 98.4
[2019-09-11] MEDS: Lidocaine Patch Removal 1 EACH TOP SCH (12:38)
[2019-09-11] MEDS ORDERED: Metoclopramide HCl 10 MG TAB PO SCH (13:30)
--- NOTE | 2019-09-12 09:10 | DIS ---
DATE OF ADMISSION: 08/31/2019 DATE OF DISCHARGE: 09/11/2019 RESIDENT: Cassie Laurent MD ADMITTING ATTENDING: Dr. Verduzco. CONSULTS: Orthopedic Surgery, Neurosurgery, Physical Therapy, Occupational Therapy, and Speech. PROCEDURES: 1. Open reduction and internal fixation of left tibia and fibula on 09/01/2019. 2. Ankle x-ray x2. 3. Chest x-ray repeated daily. 4. Foot x-ray. 5. Shoulder x-ray. 6. Tibia/fibula x-ray. 7. Cervical spine CT. 8. Chest, abdomen, and pelvis CT. 9. Facial bone CT. 10. Humerus x-ray. 11. Brain CT x2 for followup. 12. Elbow x-ray. 13. Forearm x-ray. 14. Hip x-ray. 15. Abdomen x-ray x2 for Dobhoff feeding tube placement. 16. Echocardiogram. PRIMARY DIAGNOSES: 1. Status post fall from approximately four steps. 2. Small stable subdural hematoma. 3. Status post open reduction and internal fixation of left tibia and fibula fracture. 4. Left humerus fracture, treated conservatively, stable. 5. Grade 3 splenic laceration, stable. 6. Left rib fracture, stable. SECONDARY DIAGNOSES: 1. Posttraumatic respiratory distress, resolved. 2. Urinary tract infection, resolved. 3. Acute blood loss anemia, status post transfusion with 1 unit packed red blood cells. DISCHARGE MEDICATIONS: 1. Acetaminophen 1000 mg p.o. q.6 hours scheduled. 2. Vitamin C 500 mg p.o. b.i.d. 3. Cyclobenzaprine 5 mg p.o. t.i.d. p.r.n. 4. Ferrous sulfate 325 mg p.o. b.i.d. with meals. 5. Gabapentin 200 mg p.o. daily. 6. Heparin 5000 units subcutaneously b.i.d. 7. Lidocaine patch transdermal p.r.n. 8. Melatonin 3 mg nightly by mouth. 9. Metoprolol tartrate 50 mg p.o. b.i.d. 10. Zofran 4 mg p.o. q.6 hours p.r.n. 11. Protonix 40 mg p.o. daily. 12. MiraLAX 17 g p.o. daily. 13. Senokot two tabs p.o. b.i.d. 14. Aspirin 81 mg p.o. daily. 15. Calcitriol 0.25 mcg p.o. daily. 16. Clonidine 0.1 mg p.o. b.i.d. 17. DuoNeb 3 mL q.4 hours p.r.n. 18. Fish oil one cap p.o. daily. DISCONTINUED MEDICATIONS: None. HISTORY OF PRESENT ILLNESS AND HOSPITAL COURSE: This is a pleasant 84-year-old female, who fell approximately down four stairs and sustained a subdural hematoma, left-sided rib fractures, a left humerus fracture, and a left tibia-fibula fracture. The patient's humerus fracture was treated conservatively, and she underwent open reduction and internal fixation of her left lower extremity fracture. The patient also sustained a grade 3 splenic laceration, which has been stable. The patient received physical and occupational therapy while admitted in the hospital. Her pain was well controlled and she tolerated the diet. It was determined that it would be best for her to go to a half-way facility. She was accepted at [facility] in [place], [place]. The patient did have posttraumatic respiratory distress and was tachypneic, hypertensive, and tachycardic. She did have some mental status changes while in the hospital. The patient was placed on BiPAP as needed. The patient received serial ABGs while she was on BiPAP. She was transfused 1 unit of packed red blood cells during her hospitalization. She received IV steroids since she has a history of COPD. She received serial chest x-rays to monitor her respiratory status. PHYSICAL EXAMINATION: VITAL SIGNS: Stable. GENERAL: Appearing constitutionally well. CARDIAC: Regular rate and rhythm. No murmurs. RESPIRATORY: Clear to auscultation bilaterally, no acute respiratory distress. ABDOMEN: Soft, nontender, and nondistended. Bowel sounds present. EXTREMITIES: Neurologically intact x4. Splint of right humerus intact. Postop dressings clean, dry, and intact. PERTINENT LABORATORY VALUES: Acute hemoglobin of 6.3. Transfused to bring hemoglobin up to 8.7. Hemoglobin on day of discharge 7.6; white count 15.1, downtrending. PT 13.8, INR 1.1. Microbiology; urine culture, E coli, which was ludwig sensitive. PROCEDURE RESULTS: DISPOSITION: Stable. DISCHARGE INSTRUCTIONS: 1. Location: To half-way facility. 2. Diet: Renal, low protein. 3. Activity: Nonweightbearing status for up to 6 weeks on her left arm and left leg. 4. Followup: Follow up with Ortho after completion of half-way facility rehabilitation. Follow up with PCP as needed. Job ID: [id number]
== END 2019-09-11 14:40 | DRG 957 ==
LOC: ERS 15:57 → CCU 21:06 → IMCU/EMU 09-06 18:24 → SURG B 09-07 23:52
PROVIDERS: ADMIT Surgery; ATTEND Surgery
PROC: 0HQ1XZZ Repair Face Skin, External Approach (ICD-10-PCS; principal; 2019-09-01)
PROC: 0QSH04Z Reposition Left Tibia with Internal Fixation Device, Open Approach (ICD-10-PCS; 2019-09-01)
PROC: 0QSK06Z Reposition Left Fibula with Intramedullary Internal Fixation Device, Open Approach (ICD-10-PCS; 2019-09-01)
PROC: 0PSDXZZ Reposition Left Humeral Head, External Approach (ICD-10-PCS; 2019-09-01)
PROC: 5A09457 Assistance with Respiratory Ventilation, 24-96 Consecutive Hours, Continuous Positive Airway Pressure (ICD-10-PCS; 2019-09-02)
PROC: 0BH17EZ Insertion of Endotracheal Airway into Trachea, Via Natural or Artificial Opening (ICD-10-PCS; 2019-09-03)
PROC: 5A1945Z Respiratory Ventilation, 24-96 Consecutive Hours (ICD-10-PCS; 2019-09-03)
PROC: 30233N1 Transfusion of Nonautologous Red Blood Cells into Peripheral Vein, Percutaneous Approach (ICD-10-PCS; 2019-09-03)
DX: S82.872A Displaced pilon fracture of left tibia, initial encounter for closed fracture (principal); S06.5X9A Traumatic subdural hemorrhage with loss of consciousness of unspecified duration, initial encounter; S36.031A Moderate laceration of spleen, initial encounter; J96.00 Acute respiratory failure, unspecified whether with hypoxia or hypercapnia; S22.42XA Multiple fractures of ribs, left side, initial encounter for closed fracture; S42.222A 2-part displaced fracture of surgical neck of left humerus, initial encounter for closed fracture; I13.0 Hypertensive heart and chronic kidney disease with heart failure and stage 1 through stage 4 chronic kidney disease, or unspecified chronic kidney disease; N39.0 Urinary tract infection, site not specified; N18.4 Chronic kidney disease, stage 4 (severe); E27.40 Unspecified adrenocortical insufficiency; E87.2 Acidosis; D62 Acute posthemorrhagic anemia; N17.9 Acute kidney failure, unspecified; W10.9XXA Fall (on) (from) unspecified stairs and steps, initial encounter; S00.31XA Abrasion of nose, initial encounter; S01.81XA Laceration without foreign body of other part of head, initial encounter; I50.9 Heart failure, unspecified; H35.30 Unspecified macular degeneration; M06.9 Rheumatoid arthritis, unspecified; N39.41 Urge incontinence; B96.20 Unspecified Escherichia coli [E. coli] as the cause of diseases classified elsewhere; I25.10 Atherosclerotic heart disease of native coronary artery without angina pectoris; J44.9 Chronic obstructive pulmonary disease, unspecified; E83.51 Hypocalcemia; E83.42 Hypomagnesemia; E87.70 Fluid overload, unspecified; Z90.710 Acquired absence of both cervix and uterus; Y92.019 Unspecified place in single-family (private) house as the place of occurrence of the external cause; Z87.891 Personal history of nicotine dependence; Z88.5 Allergy status to narcotic agent; Z88.0 Allergy status to penicillin; Z79.82 Long term (current) use of aspirin; Z79.899 Other long term (current) drug therapy; S82.452A Displaced comminuted fracture of shaft of left fibula, initial encounter for closed fracture
CPT/HCPCS: 12011; 27808; 36415; 36416; 36430; 51702; 70450; 70486; 71045; 71260; 72125; 74018; 74177; 76000; 80048; 80053; 81003; 81015; 82533; 82550; 82553; 82805; 83605; 83690; 83735; 83880; 84100; 84484; 85007; 85014; 85018; 85025; 85027; 85610; 85730; 86850; 86900; 86901; 87070; 87077; 87086; 87186; 87205; 90471; 90715; 93005; 93010; 93306; 94002; 94003; 94640; 94660; 96361; 96374; 96375; 99292; C1713; G0390; J0360; J0696; J1100; J1644; J1720; J1940; J2001; J2060; J2270; J2370; J2405; J2704; J2920; J3010; J3475; J3490; J7070; J7512; J7620; P9016; Q0162; Q9967; S0028